=== PATIENT | female | born 1965 | race Caucasian/White ===

== ENCOUNTER 2017-11-10 18:30 | Inpatient (IN) | payer MEDICARE, MEDICAID, SELFPAY ==
[2017-11-10 18:34] VITALS: BP 124/64; PULSE 77; RESP 18; TEMP 36.3; O2SAT 99; BMI 38.0
[2017-11-10 20:33] VITALS: BP 106/61; PULSE 80; RESP 16; O2SAT 97
[2017-11-10 20:56] LABS: Bedside Glucose 306 mg/dL (70-110)
[2017-11-10 21:51] LABS: Absolute Lymphocyte Count 2.23 X10^3/ul (0.83-4.51); Absolute Neutrophil Count 7.3 X10^3/uL (2.0-7.7); Basophil# 0.06 X10^3/uL; Basophil% 0.6 % (0-1); Eosinophil# 0.15 X10^3/uL; Eosinophils% 1.4 % (0-5); Hemoglobin 12.8 g/dl (12.0-15.0); Lymphocyte # 2.23 X10^3/ul (4.0); Lymphocyte % 21.4 % (19-41); Mean Corp Hgb Conc 34.6 g/gl (32-36); Mean Platelet Vol. 10.7 fl (6.2-12.0); Monocyte# 0.67 X10^3/uL; Monocyte% 6.4 % (0-10); Neutrophil # 7.28 X10^3/uL (2.7-7.7); Platelet Count 138 K/mm3 (150-450); RBC Distribution Width SD 40.8 fl (35.1-43.9); Red Blood Count 4.57 M/mm3 (4.2-5.4); White Blood Count 10.4 K/mm3 (4.4-11.0)
[2017-11-10] MEDS: HYDROmorphone 1 MG/ML Syringe 0.5 MG IV (22:00)
[2017-11-10] MEDS: 0.9% Normal Saline 1,000 ML 1000 ML IV (22:01)
[2017-11-10 22:02] LABS: POSITIVE COUNT NO; POSITIVE DIFFERENTIAL NO; POSITIVE MORPHOLOGY NO
[2017-11-10 22:03] VITALS: BP 127/59; PULSE 80; RESP 16; O2SAT 99
[2017-11-10 22:03] LABS: AST(SGOT) 34 U/L (15-37); Alanine Aminotransfer ALT/SGPT 38 U/L (12-78); Albumin, Serum 4.1 g/dL (3.4-5.0); Alkaline Phosphatase 133 U/L (45-117); Anion Gap 13 (5-15); BUN 37 mg/dL (7-18); BUN/Creat Ratio 19.7 RATIO (10-20); Bilirubin, Direct 0.32 mg/dL (0.00-0.30); Calcium,Total 9.5 mg/dL (8.5-10.1); Chloride 93 mmol/L (98-107); Creatinine, Serum 1.88 mg/dL (0.55-1.02); EST Glomerular Filtration Rate 30 mL/min (>60); Est Glom Filt Rate - Afr Amer 36 mL/min (>60); Estimated Creatinine Clearance 33.51 ml/min; Globulin 4.7 g/dL (2.2-4.2); Glucose 291 mg/dL (70-110); Lipase 104 U/L (73-393); Potassium 3.3 mmol/L (3.5-5.1); Protein, Total 8.8 g/dL (6.4-8.2); Sodium Level 130 mmol/L (136-145)
--- NOTE | 2017-11-10 22:34 | ED.DCSUM_ITS ---
- ER Visit Summary Date of Service: 11/10/17 Chief Complaint: Abdominal pain and vomiting History of Present Illness: The patient is a 52 F with a history of NOYOLA and gastroparesis. Patient reports having a flare of abdominal pain and nausea and vomiting over the past 3 or 4 days. She has not had fever. She has Phenergan at home that is no longer helping. She is also using a scopolamine patch. Physical Examination: Vital signs are unremarkable. Patient sitting upright in bed no acute distress. Head and neck examination is significant for dry mucous membranes. Scopolamine patch is in place behind the left ear. Heart is regular rate and rhythm. Lung sounds are clear. Abdomen is soft with mild diffuse tenderness palpation. There is no guarding or rebound. Hypoactive bowel sounds are noted. Test Results: CBC is significant for platelet count of 138,000. Chemistry studies reveal a sodium of 130, potassium 3.3, chloride 93. Glucose is 291, BUN 37, creatinine 1.88. This is elevated above her baseline. LFTs are significant for direct bili 0.32 and an alk phos of 133. Lipase is normal. Her ammonia is elevated at 131. I only have one prior ammonia level from approximately 9 months ago and at that time is in the 70s. Emergency Department Course and Treatment: Patient was given a small dose of Dilaudid, Phenergan, and IV fluids. A dose of lactulose is ordered. I will order potassium as well. At this time patient will be admitted for further hydration and monitoring of her symptoms. Treatment Plan: [] Disposition: Admit Impression: 1. Hyponatremia 2. Acute kidney injury 3. Elevated ammonia 4. Gastroparesis 5. History of NOYOLA This note was generated with [employer] dictation software. It may contain incorrect words, spelling, and punctuation that were not noted in review of the chart prior to signing ED Disposition - Plan for ED Patient: Chief Complaint: Abd Pain Referrals: Kaylee Franco MD [Primary Care Provider] -
[2017-11-10] MEDS: Lactulose 20 GM/30 ML UDC PO (22:47)
--- NOTE | 2017-11-10 23:35 | PCM.HP.STD ---
Problem List (1) NOYOLA (nonalcoholic steatohepatitis) Status: Acute (2) HLD (hyperlipidemia) Status: Chronic Qualifiers: (3) Obesity (BMI 30-39.9) Status: Chronic (4) MANI (obstructive sleep apnea) Status: Chronic (5) Hypothyroidism Status: Chronic Qualifiers: (6) IBS (irritable bowel syndrome) Status: Chronic Qualifiers: (7) Coronary artery disease Status: Chronic Qualifiers: (8) Asthma Status: Chronic (9) Diabetes mellitus type II Status: Chronic (10) Gastroparesis Status: Acute (11) Hyperammonemia Status: Acute History of Present Illness Date of Admission: 11/11/17 Chief Complaint: nausea and vomiting, abdominal pain The patient is a 52 year old female patient with a history of gastroparesis and NOYOLA. Over the past four days she has developed worsening abdominal pain with nausea and vomiting. She is unable to tolerate Reglan due to tardive dyskinesia. Ammonia level is 130 however, she states this is abnormally high for her. The patient has hyponatremia, hypokalemia. renal insifficiency as well by her laboratory studies today. She has not previously been on Xifaxan. She will be admitted for management of her abdominal pain and abnormal laboratory studies. Past Medical History Past Medical History (Chronic Problems): Chronic Problems HLD (hyperlipidemia) (Chronic) Obesity (BMI 30-39.9) (Chronic) MANI (obstructive sleep apnea) (Chronic) Hypothyroidism (Chronic) IBS (irritable bowel syndrome) (Chronic) Thrombocytopenia (Chronic) Coronary artery disease (Chronic) Asthma (Chronic) Diabetes mellitus type II (Chronic) Hypertension (Chronic) Allergies adhesive Allergy (Verified 10/04/17 16:16) BLISTERS ADHESIVE ON BAND-AIDS sumatriptan [From Imitrex] Adverse Reaction (Intermediate, Verified 10/04/17 16:16) PALPITATIONS sumatriptan succinate [From Imitrex] Adverse Reaction (Intermediate, Verified 10/04/17 16:16) PALPITATIONS prednisone Adverse Reaction (Mild, Verified 10/04/17 16:16) Vomiting amoxicillin trihydrate [From Augmentin] Adverse Reaction (Verified 10/04/17 16:16) Nausea barium iodide Adverse Reaction (Verified 10/04/17 16:16) Nausea/Vom/Diarrhea citalopram Adverse Reaction (Verified 10/04/17 16:16) Unknown glyburide [From Glucovance] Adverse Reaction (Verified 10/04/17 16:16) Unknown ibuprofen Adverse Reaction (Verified 10/04/17 16:16) Unknown metformin [From Glucovance] Adverse Reaction (Verified 10/04/17 16:16) Unknown metoclopramide [From Reglan] Adverse Reaction (Verified 10/04/17 16:16) constant motion of legs and arms it didn't work morphine Adverse Reaction (Verified 10/04/17 16:16) Unknown naproxen Adverse Reaction (Verified 10/04/17 16:16) Unknown oxaprozin [From Daypro] Adverse Reaction (Verified 10/04/17 16:16) Unknown potassium clavulanate [From Augmentin] Adverse Reaction (Verified 10/04/17 16:16) Nausea prednisolone Adverse Reaction (Verified 10/04/17 16:16) Unknown pregabalin [From Lyrica] Adverse Reaction (Verified 10/04/17 16:16) Other TOTAL LOSS OF NERVES prochlorperazine [From Compazine] Adverse Reaction (Verified 11/10/17 18:33) Other tramadol Adverse Reaction (Verified 10/04/17 16:16) Other RESTLESS venlafaxine [From Effexor] Adverse Reaction (Verified 10/04/17 16:16) Unknown Home Medications: Ambulatory Orders Medication Instructions Recorded BusPIRone [Buspar] 10 mg PO DAILY 07/02/15 Levothyroxine [Synthroid] 150 mcg PO DAILY 07/02/15 Montelukast Sodium [Singulair] 10 mg PO QHS 07/02/15 Pantoprazole Sodium [Protonix] 40 mg PO DAILY 07/02/15 ProMETHAzine [Phenergan] 25 mg PO Q4H PRN PRN 07/02/15 Clopidogrel Bisulfate [Plavix] 75 mg PO DAILY 07/10/15 Losartan Potassium [Cozaar] 25 mg PO QHS 07/10/15 Rosuvastatin Calcium [Crestor] 10 mg PO QHS 12/01/15 Albuterol IH (ProAir) [Proair Hfa] 2 puff INHALATION Q4H PRN PRN 01/18/17 DiphenhydrAMINE [Benadryl] 25 mg PO Q4H PRN PRN 01/18/17 Insulin Lispro [Humalog] See Protocol SC QHS 01/18/17 Insulin Glargine,Hum.rec.anlog 55 unit SQ BID 03/25/17 [Lantus] Insulin Lispro [Humalog] 35 unit SQ TIDCM 03/25/17 Spironolactone [Aldactone] 25 mg PO DAILY 04/19/17 Alprazolam [Xanax Xr] 1 mg PO DAILY 10/04/17 Cyclobenzaprine [Flexeril] 10 mg PO BID 10/04/17 Furosemide [Lasix] 40 mg PO DAILY 10/04/17 Lactulose 30 ml PO DAILY 10/04/17 Metolazone [Zaroxolyn] 2.5 mg PO DAILY 10/04/17 Oxycodone [Oxyir] 5 mg PO Q6H PRN PRN 10/04/17 Scopolamine 1 each TD X1 10/04/17 Surgical History: cholecystectomy, - - necrotizing fasciitis right calf with compartmental syndrome 12/2000, left shoulder surgery. Psychiatric History: Anxiety, Depression [employer] SALES History: No pertinent [employer] SAL[employer] history Smoking Status: Never smoker - *Family History Paternal History Items: No pertinent history Maternal History Items: No pertinent history Review of Systems Constitutional: Denies: Chills, Fever, Weight Change HEENT: Denies: Head Aches, Sinus Congestion, Sinus Drainage Cardiovascular: Denies: Chest Pain, Palpitations Respiratory: Denies: Cough, Shortness of breath at rest, Sputum production Gastrointestinal: Reports: Abdominal Pain, Dyspepsia, Nausea, Vomiting Genitourinary: Denies: Dysuria Musculoskeletal: Denies: Joint Pain, Joint Tenderness Skin: Denies: Rash, Wounds Neurological: Denies: Numbness, Tingling, Focal weakness Psychiatric: Denies: Anxiety, Depression, Homicidal Ideations, Suicidal Ideations Hematologic/ Lymphatic: Denies: Easy Bruising, Easy Bleeding VTE Information - Inpt Only VTE Present on Admission: No VTE Mechan Device Prophylaxis: None VTE Pharm Prophylaxis ordered?: Yes Patient Problems: Active and Suspected Problems NOYOLA (nonalcoholic steatohepatitis) (Acute) Hyperammonemia (Acute) - Physical Exam General: Alert, Oriented x3, Cooperative HEENT: Atraumatic, Normocephalic Neck: Supple Lungs: Clear to auscultation, Normal air movement Cardiovascular: Regular rate, Regular Rhythm, Normal S1, Normal S2, No murmurs Abdomen: Bowel Sounds Present, Soft, Obese, Tender Extremities: No edema, Capillary Refill Less than 3 Seconds Skin: No rashes, No breakdown Musculoskeletal: No Tenderness to Palpation of Joints or Extremities Neurological: Neuro grossly intact Psych/Mental Status: Normal Affect, Appropriate Vital Signs Temp Pulse Resp BP Pulse Ox 97.4 F L 80 16 127/59 H 99 11/10/17 18:34 11/10/17 22:03 11/10/17 22:03 11/10/17 22:03 11/10/17 22:03 Oxygen Delivery Method Room Air Weight: 236 lb Body Mass Index (BMI) 38.0 Finger Stick Blood Glucose 306 Laboratory Tests Past 24 Hrs 11/10/17 11/10/17 11/10/17 20:32 20:32 20:32 WBC 10.4 RBC 4.57 Hgb 12.8 Hct 37.0 MCV 81.0 MCH 28.0 MCHC 34.6 RDW 14.0 RDW Differential 40.8 Plt Count 138 L MPV 10.7 Immature Gran % (Auto) 0.200 Neut % (Auto) 70.0 Lymph % (Auto) 21.4 [place] % (Auto) 6.4 Eos % (Auto) 1.4 Baso % (Auto) 0.6 Absolute Neuts (auto) 7.3 Absolute Lymphs (auto) 2.23 Total Counted Not Reportable Sodium 130 L Potassium 3.3 L Chloride 93 L Carbon Dioxide 24.0 Anion Gap 13 BUN 37 H Creatinine 1.88 H Estim Creat Clear Calc 33.51 Est GFR (MDRD) Af Amer 36 L Est GFR (MDRD) Non-Af 30 L BUN/Creatinine Ratio 19.7 Glucose 291 H Calcium 9.5 Total Bilirubin 0.80 Direct Bilirubin 0.32 H AST 34 ALT 38 Alkaline Phosphatase 133 H Ammonia Total Protein 8.8 H Albumin 4.1 Globulin 4.7 H Lipase 104 Acetone Level NEGATIVE 11/10/17 21:40 WBC RBC Hgb Hct MCV MCH MCHC RDW RDW Differential Plt Count MPV Immature Gran % (Auto) Neut % (Auto) Lymph % (Auto) [place] % (Auto) Eos % (Auto) Baso % (Auto) Absolute Neuts (auto) Absolute Lymphs (auto) Total Counted Sodium Potassium Chloride Carbon Dioxide Anion Gap BUN Creatinine Estim Creat Clear Calc Est GFR (MDRD) Af Amer Est GFR (MDRD) Non-Af BUN/Creatinine Ratio Glucose Calcium Total Bilirubin Direct Bilirubin AST ALT Alkaline Phosphatase Ammonia 131.0 H Total Protein Albumin Globulin Lipase Acetone Level POC Glucose 11/10/17 20:46 POC Glucose 306 H Assessment/Plan Active and Suspected Problems NOYOLA (nonalcoholic steatohepatitis) (Acute) Hyperammonemia (Acute) Chronic Problems HLD (hyperlipidemia) (Chronic) Obesity (BMI 30-39.9) (Chronic) MANI (obstructive sleep apnea) (Chronic) Hypothyroidism (Chronic) IBS (irritable bowel syndrome) (Chronic) Thrombocytopenia (Chronic) Coronary artery disease (Chronic) Asthma (Chronic) Diabetes mellitus type II (Chronic) Gastroparesis (Chronic) Hypertension (Chronic) Plan - admit to medical surgical floor - start lactulose and Xifaxan for management of her hyperammonemia - CMP and ammonia level in the AM - continue Zofran and Compazine for nausea - IV fluids of normal saline with 20meq Kcl at 75cc/hr - continue routine home medications - LMWH for DVT prophylaxis Code Visit Inpatient E&M: 47816 Init Hosp L3
[2017-11-10] MEDS: 0.9% Normal Saline 1,000 ML 150 ML IV (23:42)
[2017-11-11] VITALS (9 sets, daily range): BP systolic 116–150; BP diastolic 53–82; PULSE 65–80; RESP 14–22; TEMP 35.6–37; O2SAT 95–100; BMI 38.9
[2017-11-11] MEDS: HYDROmorphone 1 MG/ML Syringe 0.5 MG IV (00:11)
[2017-11-11] MEDS: Ondansetron 4 MG/2 ML Vial IV (02:50)
[2017-11-11] MEDS: oxyCODONE 5 MG Tablet PO ×2 (02:52→08:53)
[2017-11-11] MEDS: Levothyroxine 150 MCG Tablet PO (06:29)
[2017-11-11 06:51] LABS: Bedside Glucose 273 mg/dL (70-110)
[2017-11-11 07:00] LABS: Absolute Lymphocyte Count 1.77 X10^3/ul (0.83-4.51); Absolute Neutrophil Count 3.1 X10^3/uL (2.0-7.7); Basophil# 0.02 X10^3/uL; Basophil% 0.4 % (0-1); Eosinophil# 0.15 X10^3/uL; Eosinophils% 2.8 % (0-5); Hematocrit 33.7 % (37-47); Hemoglobin 11.5 g/dl (12.0-15.0); Lymphocyte # 1.77 X10^3/ul (4.0); Mean Corp Hgb Conc 34.1 g/gl (32-36); Mean Corpuscular Hgb 27.9 pg (27.0-32.0); Mean Corpuscular Volume 81.8 fL (81-99); Mean Platelet Vol. 9.8 fl (6.2-12.0); Monocyte# 0.35 X10^3/uL; Monocyte% 6.5 % (0-10); Neutrophil # 3.07 X10^3/uL (2.7-7.7); Neutrophil % 57.3 % (47-70); Platelet Count 81 K/mm3 (150-450); RBC Distribution Width SD 41.9 fl (35.1-43.9); Red Blood Count 4.12 M/mm3 (4.2-5.4); White Blood Count 5.4 K/mm3 (4.4-11.0)
[2017-11-11 07:08] LABS: POSITIVE COUNT NO; POSITIVE DIFFERENTIAL NO; POSITIVE MORPHOLOGY NO
[2017-11-11 07:30] LABS: ALB/GLOB Ratio 0.8 RATIO (0.9-2.4); AST(SGOT) 28 U/L (15-37); Alanine Aminotransfer ALT/SGPT 31 U/L (12-78); Albumin, Serum 3.4 g/dL (3.4-5.0); Alkaline Phosphatase 103 U/L (45-117); Anion Gap 9 (5-15); BUN 26 mg/dL (7-18); BUN/Creat Ratio 19.7 RATIO (10-20); Calcium,Total 8.2 mg/dL (8.5-10.1); Chloride 100 mmol/L (98-107); Creatinine, Serum 1.32 mg/dL (0.55-1.02); EST Glomerular Filtration Rate 45 mL/min (>60); Est Glom Filt Rate - Afr Amer 55 mL/min (>60); Estimated Creatinine Clearance 47.73 ml/min; Glucose 268 mg/dL (70-110); Potassium 3.6 mmol/L (3.5-5.1); Protein, Total 7.4 g/dL (6.4-8.2); Sodium Level 135 mmol/L (136-145)
[2017-11-11] MEDS: Glucerna Shake 120 ML LIQUID PO (08:52)
[2017-11-11] MEDS: Pantoprazole Sodium 40 MG Tablet PO (08:52)
[2017-11-11] MEDS: ALPRAZolam 0.5 MG Tablet 1 MG PO (08:52)
[2017-11-11] MEDS: Furosemide 40 MG Tablet PO (08:53)
[2017-11-11] MEDS: Spironolactone 25 MG Tablet PO (08:53)
[2017-11-11] MEDS: Clopidogrel Bisulfate 75 MG Tablet PO (08:54)
[2017-11-11] MEDS: 0.9% NaCl Peripheral Flush Adult/Peds IV ×2 (08:54→16:12)
[2017-11-11] MEDS: Lactulose 20 GM/30 ML UDC PO ×2 (08:59→22:28)
[2017-11-11] MEDS: rifAXIMin 550 MG Tablet PO ×2 (09:00→22:28)
--- NOTE | 2017-11-11 13:34 | CASEMGMT ---
RN CM Assessment. Attempted to see pt x 3. she is very sleepy, awakens for short time only. Attempted to call number listed for , not a working number. Will attempt again tomorrow. Walter GONZALEZN RN ACM
[2017-11-11 14:31] LABS: Bedside Glucose 284 mg/dL (70-110)
[2017-11-11 16:26] LABS: Bedside Glucose 171 mg/dL (70-110)
--- NOTE | 2017-11-11 16:47 | PCM.PN.HOSP ---
Patient Problems: Active and Suspected Problems NOYOLA (nonalcoholic steatohepatitis) (Acute) Hyperammonemia (Acute) Subjective: Patient has multiple somatic complaints including generalized abdominal pain with cramps; predominantly in lower abdominal quadrant, feeling of nausea, decreased appetite, burping and nonspecific dyspeptic symptoms. She has seen [facility] adult literacy teacher Dr. Gtz in the past. She had tried metoclopramide in the past but due to tardive dyskinesia and other complication has been discontinued. Vitals/I&O's: Vital Signs Temp Pulse Resp BP Pulse Ox 96.1 F L 74 16 137/82 H 100 11/11/17 14:20 11/11/17 14:20 11/11/17 14:20 11/11/17 14:20 11/11/17 14:20 Oxygen Flow Rate 2 Oxygen Delivery Method Nasal Cannula Weight: 240 lb 15.444 oz Body Mass Index (BMI) 38.9 Intake and Output for Last 24 Hours 11/09/17 11/10/17 11/11/17 23:59 23:59 23:59 Intake Total 1991 Output Total 1750 / 1750 Balance 242 / 242 General: Alert, Oriented x3, Cooperative HEENT: Atraumatic, PERRLA, EOMI, Normocephalic Neck: Supple, No JVD, Negative Carotid Bruits Lungs: No rhonchi, No wheeze, No rales, Diminished Cardiovascular: Regular rate, Regular Rhythm, Normal S1, Normal S2, No murmurs Abdomen: Bowel Sounds Present, Soft, Non Tender, Hypoactive Bowel Sounds, Distended Extremities: Capillary Refill Less than 3 Seconds, Edema Skin: No rashes, No breakdown Musculoskeletal: No Tenderness to Palpation of Joints or Extremities, Arthritic Changes Neurological: Cranial nerves II-XII grossly intact, Neuro grossly intact Psych/Mental Status: Normal Affect, Appropriate Laboratory Results 11/11/17 06:36: POC Glucose 273 H 11/11/17 06:40: WBC 5.4, RBC 4.12 L, Hgb 11.5 L, Hct 33.7 L, MCV 81.8, MCH 27.9, MCHC 34.1, RDW 14.0, RDW Differential 41.9, Plt Count 81 L, MPV 9.8, Immature Gran % (Auto) 0.000, Neut % (Auto) 57.3, Lymph % (Auto) 33.0, [place] % (Auto) 6.5, Eos % (Auto) 2.8, Baso % (Auto) 0.4, Absolute Neuts (auto) 3.1, Absolute Lymphs (auto) 1.77, Total Counted Not Reportable 11/11/17 06:40: Sodium 135 L, Potassium 3.6, Chloride 100, Carbon Dioxide 26.0, Anion Gap 9, BUN 26 H, Creatinine 1.32 H, Estim Creat Clear Calc 47.73, Est GFR (MDRD) Af Amer 55 L, Est GFR (MDRD) Non-Af 45 L, BUN/Creatinine Ratio 19.7, Glucose 268 H, Calcium 8.2 L, Total Bilirubin 1.00, AST 28, ALT 31, Alkaline Phosphatase 103, Total Protein 7.4, Albumin 3.4, Globulin 4.0, Albumin/Globulin Ratio 0.8 L 11/11/17 06:40: Ammonia 51.0 H 11/11/17 11:49: POC Glucose 284 H 11/11/17 16:09: POC Glucose 171 H Current Medications Albuterol Sulfate (Ventolin Aerosols) 2.5 mg INHALATION Q4H PRN PRN PRN Reason: SOB &/OR WHEEZING Alprazolam (Xanax) 1 mg PO DAILY [facility] Last Admin: 11/11/17 08:52 Dose: 1 mg Atorvastatin Calcium (Lipitor) 20 mg PO QHS [facility] Buspirone HCl (Buspar) 10 mg PO DAILY [facility] Last Admin: 11/11/17 08:55 Dose: 10 mg Clopidogrel Bisulfate (Plavix) 75 mg PO DAILY [facility] Last Admin: 11/11/17 08:54 Dose: 75 mg Cyclobenzaprine HCl (Flexeril) 10 mg PO BID [facility] Last Admin: 11/11/17 08:53 Dose: 10 mg Diphenhydramine HCl (Benadryl) 25 mg PO Q4H PRN PRN PRN Reason: Swelling Furosemide (Lasix) 40 mg PO DAILY [facility] Last Admin: 11/11/17 08:53 Dose: 40 mg Potassium Chloride/Sodium Chloride () 1,000 mls @ 75 mls/hr IV .[id number] [facility] Last Admin: 11/11/17 16:12 Dose: 75 mls/hr Insulin Aspart (Novolog Flexpen ([facility])) 35 units SC TIDCM [facility] Last Admin: 11/11/17 11:52 Dose: 35 u Insulin Aspart (Novolog Flexpen ([facility])) 0 units SC QHS [facility] PRN Reason: Protocol Insulin Detemir (Levemir ([facility])) 55 units SC BID [facility] Last Admin: 11/11/17 08:56 Dose: 55 u Lactulose (Chronulac, Cephulac) 20 gm PO BID [facility] Last Admin: 11/11/17 08:59 Dose: 20 gm Levothyroxine Sodium (Synthroid) 150 mcg PO DAILY@0600 [facility] Last Admin: 11/11/17 06:29 Dose: 150 mcg Losartan Potassium (Cozaar) 25 mg PO QHS [facility] Magnesium Hydroxide (Milk Of Magnesia) 30 ml PO DAILY PRN PRN PRN Reason: Constipation Montelukast Sodium (Singulair) 10 mg PO QHS [facility] Ondansetron HCl (Zofran) 4 mg IV Q6H PRN PRN PRN Reason: NAUSEA Last Admin: 11/11/17 02:50 Dose: 4 mg Oxycodone HCl (Oxyir) 5 mg PO Q6H PRN PRN PRN Reason: PAIN Last Admin: 11/11/17 08:53 Dose: 5 mg Pantoprazole Sodium (Protonix) 40 mg PO DAILY [facility] Last Admin: 11/11/17 08:52 Dose: 40 mg Promethazine HCl (Phenergan (Ll)) 12.5 mg IV Q4H PRN PRN PRN Reason: NAUSEA/VOMITING Last Admin: 11/11/17 16:12 Dose: 12.5 mg Rifaximin (Xifaxan) 550 mg PO BID [facility] Last Admin: 11/11/17 09:00 Dose: 550 mg Scopolamine HBr (Transderm-Scop) 1 patch TD Q72H PRN Sodium Chloride () 5 - 30 ml IV UD PRN PRN Reason: SALINE FLUSH Last Admin: 11/11/17 16:12 Dose: 20 ml Spironolactone (Aldactone) 25 mg PO DAILY [facility] Last Admin: 11/11/17 08:53 Dose: 25 mg Assessment/Plan Active and Suspected Problems NOYOLA (nonalcoholic steatohepatitis) (Acute) Hyperammonemia (Acute) The patient is a 52 year old female patient with a history of gastroparesis and NOYOLA. Over the past four days she has developed worsening abdominal pain with nausea and vomiting. She is unable to tolerate Reglan due to tardive dyskinesia. Ammonia level was 130 however, she states this is abnormally high for her. The patient has hyponatremia, hypokalemia. renal insifficiency. She has not previously been on Xifaxan. Was further admitted for acute exacerbation of gastroparesis with abdominal pain and nausea and vomiting. 1. Acute on chronic abdominal pain and vomiting most rarely due to irritable bowel syndrome complicated with diabetes mellitus type 2, gastroparesis: Patient is being admitted to the regular floor. She is on scopolamine patch. Currently on IV fluid normal saline, Phenergan for symptomatic management. Started on erythromycin 250 mg before meals and at bedtime for gastroparesis need to follow-up with adult literacy teacher. 2. Noyola related cirrhosis with hyperammonemia: Currently, the patient is not confused. Liver biopsy report reviewed. Patient had CT-guided liver biopsy on March 2017 which is reported as the liver parenchyma tissue with extensive microvascular steatosis and cirrhosis. It shows distortion of normal lobular architecture and multiple nodules divided by fibrous septae stable cirrhosis. Continue lactulose and Xifaxan. 3. Diabetes mellitus type 2 complicated with gastroparesis, peripheral neuropathy and morbid obesity: On Accu-Chek before meals and at bedtime. On long-acting insulin, Levemir and NovoLog insulin. Other comorbidities include hypertension, dyslipidemia, hypothyroidism, irritable bowel syndrome, asthma; chronic stable asthma stable. Home medication reconciliation done. Multiple comorbidities complicates the care. PT and OT ordered. LMWH lateral SCDs for DVT prophylaxis Code Visit Inpatient E&M: 45009 Subs Hosp L2
[2017-11-11 22:21] LABS: Bedside Glucose 312 mg/dL (70-110)
[2017-11-11] MEDS: Montelukast 10 MG Tablet PO (22:28)
[2017-11-11] MEDS: Losartan Potassium 25 MG Tablet PO (22:28)
[2017-11-11] MEDS: Atorvastatin Calcium 20 MG Tablet PO (22:28)
[2017-11-12] MEDS: oxyCODONE 5 MG Tablet PO (00:07)
[2017-11-12 02:20] VITALS: BP 119/56; PULSE 69; RESP 16; TEMP 36.6; O2SAT 98
--- NOTE | 2017-11-12 05:55 | EKG12_ITS ---
Test Reason : AM EKG Blood Pressure : / mmHG Vent. Rate : 078 BPM Atrial Rate : 078 BPM P-R Int : 202 ms QRS Dur : 118 ms QT Int : 416 ms P-R-T Axes : 028 -26 035 degrees QTc Int : 474 ms Normal sinus rhythm Incomplete left bundle branch block Borderline ECG When compared with ECG of 17-JUL-2017 16:54, No significant change was found Confirmed by XOCHITL SALEH ([id number]), science editor XIAO GROSSMAN ([id number] on 11/20/2017 1:40:56 PM Referred By: DR PETERSEN Confirmed By:XOCHITL SALEH
[2017-11-12] MEDS: Levothyroxine 150 MCG Tablet PO (06:20)
[2017-11-12 07:06] LABS: Bedside Glucose 352 mg/dL (70-110)
[2017-11-12 08:45] VITALS: BP 120/58; PULSE 77; RESP 16; TEMP 37.1; O2SAT 99
--- NOTE | 2017-11-12 09:27 | DCINST_ITS ---
- Discharge Diagnoses Current Active Problems: Current Active and Chronic Problems NOYOLA (nonalcoholic steatohepatitis) (Acute) Hyperammonemia (Acute) You will use the following diet at home:: Calorie/Carbohydrate Controlled ( specify 1200, 1400, etc) - 1800 [place] diet Discharge Activity: May not drive while taking narcotic pain medications. Additional Instructions: Follow-up [facility] bariatric surgery or [facility] GI service for morbid obesity and, IBS, Cirrhosis with gastroparesis Allergies/Adverse Reactions: Allergies adhesive Allergy (Verified 10/04/17 16:16) BLISTERS ADHESIVE ON BAND-AIDS sumatriptan [From Imitrex] Adverse Reaction (Intermediate, Verified 10/04/17 16: 16) PALPITATIONS sumatriptan succinate [From Imitrex] Adverse Reaction (Intermediate, Verified 16:16) PALPITATIONS prednisone Adverse Reaction (Mild, Verified 10/04/17 16:16) Vomiting amoxicillin trihydrate [From Augmentin] Adverse Reaction (Verified 10/04/17 16: 16) Nausea barium iodide Adverse Reaction (Verified 10/04/17 16:16) Nausea/Vom/Diarrhea citalopram Adverse Reaction (Verified 10/04/17 16:16) Unknown glyburide [From Glucovance] Adverse Reaction (Verified 10/04/17 16:16) Unknown ibuprofen Adverse Reaction (Verified 10/04/17 16:16) Unknown metformin [From Glucovance] Adverse Reaction (Verified 10/04/17 16:16) Unknown metoclopramide [From Reglan] Adverse Reaction (Verified 10/04/17 16:16) constant motion of legs and arms it didn't work morphine Adverse Reaction (Verified 10/04/17 16:16) Unknown naproxen Adverse Reaction (Verified 10/04/17 16:16) Unknown oxaprozin [From Daypro] Adverse Reaction (Verified 10/04/17 16:16) Unknown potassium clavulanate [From Augmentin] Adverse Reaction (Verified 10/04/17 16:16 ) Nausea prednisolone Adverse Reaction (Verified 10/04/17 16:16) Unknown pregabalin [From Lyrica] Adverse Reaction (Verified 10/04/17 16:16) Other TOTAL LOSS OF NERVES prochlorperazine [From Compazine] Adverse Reaction (Verified 11/10/17 18:33) Other tramadol Adverse Reaction (Verified 10/04/17 16:16) Other RESTLESS venlafaxine [From Effexor] Adverse Reaction (Verified 10/04/17 16:16) Unknown Medications to take at Discharge BusPIRone [Buspar] 10 mg PO DAILY 07/02/15 Levothyroxine [Synthroid] 150 mcg PO DAILY 07/02/15 Montelukast Sodium [Singulair] 10 mg PO QHS 07/02/15 Pantoprazole Sodium [Protonix] 40 mg PO DAILY 07/02/15 ProMETHAzine [Phenergan] 25 mg PO Q4H PRN PRN 07/02/15 Clopidogrel Bisulfate [Plavix] 75 mg PO DAILY 07/10/15 Losartan Potassium [Cozaar] 25 mg PO QHS 07/10/15 Rosuvastatin Calcium [Crestor] 10 mg PO QHS 12/01/15 Albuterol IH (ProAir) [Proair Hfa] 2 puff INHALATION Q4H PRN PRN 01/18/17 DiphenhydrAMINE [Benadryl] 25 mg PO Q4H PRN PRN 01/18/17 Insulin Lispro [Humalog] See Protocol SC QHS 01/18/17 Insulin Glargine,Hum.rec.anlog [Lantus] 55 unit SQ BID 03/25/17 Insulin Lispro [Humalog] 35 unit SQ TIDCM 03/25/17 Spironolactone [Aldactone] 25 mg PO DAILY 04/19/17 Alprazolam [Xanax Xr] 1 mg PO DAILY 10/04/17 Cyclobenzaprine [Flexeril] 10 mg PO BID 10/04/17 Furosemide [Lasix] 40 mg PO DAILY 10/04/17 Metolazone [Zaroxolyn] 2.5 mg PO DAILY 10/04/17 Oxycodone [Oxyir] 5 mg PO Q6H PRN PRN 10/04/17 Scopolamine 1 each TD Q72H PRN 10/04/17 Erythromycin Base 250 mg PO TID #90 tab 11/12/17 Lactulose 15 ml PO BID #0 11/12/17 The following prescriptions were given: Erythromycin Base 250 mg PO TID #90 tab Primary Care Physician: Kaylee Franco MD [Primary Care Provider] - Please follow up with your Primary Care Physician in: in 2 weeks
--- NOTE | 2017-11-12 09:27 | PCM.DC.SUM ---
Discharge Date and Diagnosis Date of Admission: 11/11/17 Date of Discharge: 11/12/17 - Primary Discharge Diagnosis Active and Suspected Problems 1. Acute on chronic abdominal pain and vomiting most rarely due to irritable bowel syndrome complicated with diabetes mellitus type 2, gastroparesis: 2. Noyola related cirrhosis with hyperammonemia: Currently, the patient is not confused. No acute encephalopathy 3. Acute kidney injury most rarely due to nausea vomiting, prerenal etiology; present on admission: 4. Diabetes mellitus type 2 complicated with gastroparesis, peripheral neuropathy and morbid obesity: - Secondary Discharge Diagnosis Chronic Problems HLD (hyperlipidemia) (Chronic) Obesity (BMI 30-39.9) (Chronic) MANI (obstructive sleep apnea) (Chronic) Hypothyroidism (Chronic) IBS (irritable bowel syndrome) (Chronic) Thrombocytopenia (Chronic) Coronary artery disease (Chronic) Asthma (Chronic) Diabetes mellitus type II (Chronic) Hypertension (Chronic) Hospital Course and Treatment Operations: None Summary of Care Provided: [] The patient is a 52 year old female patient with a history of gastroparesis and NOYOLA. Over the past four days she has developed worsening abdominal pain with nausea and vomiting. She is unable to tolerate Reglan due to tardive dyskinesia. Ammonia level was 130 however, she states this is abnormally high for her. The patient has hyponatremia, hypokalemia. renal insifficiency. She has not previously been on Xifaxan. Was further admitted for acute exacerbation of gastroparesis with abdominal pain and nausea and vomiting. Seen and examined General: Alert, Oriented x3, Cooperative HEENT: Atraumatic, PERRLA, EOMI, Normocephalic Neck: Supple, No JVD, Negative Carotid Bruits Lungs: No rhonchi, No wheeze, No rales, Diminished Cardiovascular: Regular rate, Regular Rhythm, Normal S1, Normal S2, No murmurs Abdomen: Bowel Sounds Present, Soft, Non Tender, Hypoactive Bowel Sounds, Distended Extremities: Capillary Refill Less than 3 Seconds, Edema Skin: No rashes, No breakdown Musculoskeletal: No Tenderness to Palpation of Joints or Extremities, Arthritic Changes Neurological: Cranial nerves II-XII grossly intact, Neuro grossly intact Psych/Mental Status: Normal Affect, Appropriate 1. Acute on chronic abdominal pain and vomiting most rarely due to irritable bowel syndrome complicated with diabetes mellitus type 2, gastroparesis: Patient is being admitted to the regular floor. She is on scopolamine patch. Currently on IV fluid normal saline, Phenergan for symptomatic management. Started on erythromycin 250 mg before meals and at bedtime for gastroparesis need to follow-up with manager [facility]. Patient dyspeptic symptoms including abdominal pain and cramps was controlled with erythromycin. 2. Noyola related cirrhosis with hyperammonemia: Currently, the patient is not confused. Liver biopsy report reviewed. Patient had CT-guided liver biopsy on March 2017 which is reported as the liver parenchyma tissue with extensive microvascular steatosis and cirrhosis. It shows distortion of normal lobular architecture and multiple nodules divided by fibrous septae stable cirrhosis. Continue lactulose and Xifaxan. 3. Acute kidney injury most rarely due to nausea vomiting, prerenal etiology; present on admission: Patient was treated with IV fluids. Creatinine improved from 1.80-1.32. Resolved. 4. Diabetes mellitus type 2 complicated with gastroparesis, peripheral neuropathy and morbid obesity: On Accu-Chek before meals and at bedtime. On long-acting insulin, Levemir and NovoLog insulin. Other comorbidities include hypertension, dyslipidemia, hypothyroidism, irritable bowel syndrome, asthma; chronic stable asthma stable. Home medication reconciliation done. Multiple comorbidities complicates the care. PT and OT ordered. LMWH lateral SCDs for DVT prophylaxis Discharge medication reconciliation done. Patient was instructed to follow with a manager sql in [facility] are currently in bariatric surgery. Patient has Noyola related cirrhosis. Discharge follow-up instructions completed. Discharge Activity: May not drive while taking narcotic pain medications. Home Medications: Medications to take at Discharge BusPIRone [Buspar] 10 mg PO DAILY 07/02/15 Levothyroxine [Synthroid] 150 mcg PO DAILY 07/02/15 Montelukast Sodium [Singulair] 10 mg PO QHS 07/02/15 Pantoprazole Sodium [Protonix] 40 mg PO DAILY 07/02/15 ProMETHAzine [Phenergan] 25 mg PO Q4H PRN PRN 07/02/15 Clopidogrel Bisulfate [Plavix] 75 mg PO DAILY 07/10/15 Losartan Potassium [Cozaar] 25 mg PO QHS 07/10/15 Rosuvastatin Calcium [Crestor] 10 mg PO QHS 12/01/15 Albuterol IH (ProAir) [Proair Hfa] 2 puff INHALATION Q4H PRN PRN 01/18/17 DiphenhydrAMINE [Benadryl] 25 mg PO Q4H PRN PRN 01/18/17 Insulin Lispro [Humalog] See Protocol SC QHS 01/18/17 Insulin Glargine,Hum.rec.anlog [Lantus] 55 unit SQ BID 03/25/17 Insulin Lispro [Humalog] 35 unit SQ TIDCM 03/25/17 Spironolactone [Aldactone] 25 mg PO DAILY 04/19/17 Alprazolam [Xanax Xr] 1 mg PO DAILY 10/04/17 Cyclobenzaprine [Flexeril] 10 mg PO BID 10/04/17 Furosemide [Lasix] 40 mg PO DAILY 10/04/17 Metolazone [Zaroxolyn] 2.5 mg PO DAILY 10/04/17 Oxycodone [Oxyir] 5 mg PO Q6H PRN PRN 10/04/17 Scopolamine 1 each TD Q72H PRN 10/04/17 Erythromycin Base 250 mg PO TID #90 tab 11/12/17 Lactulose 15 ml PO BID #0 11/12/17 Following Prescrptions Were Given to Patient: Erythromycin Base 250 mg PO TID #90 tab Primary Care Physician: Kaylee Franco MD [Primary Care Provider] - Please follow up with your Primary Care Physician in: in 2 weeks Meaningful Use Info Meaningful Use Diagnoses (Choose all that apply): None applicable Code Visit Inpatient E&M: 75144 Disch Hosp
[2017-11-12] MEDS: Pantoprazole Sodium 40 MG Tablet PO (11:10)
[2017-11-12] MEDS: Spironolactone 25 MG Tablet PO (11:10)
[2017-11-12] MEDS: Furosemide 40 MG Tablet PO (11:11)
[2017-11-12] MEDS: Lactulose 20 GM/30 ML UDC PO (11:11)
[2017-11-12] MEDS: Clopidogrel Bisulfate 75 MG Tablet PO (11:12)
[2017-11-12] MEDS: rifAXIMin 550 MG Tablet PO (11:12)
[2017-11-12 12:11] LABS: Bedside Glucose 397 mg/dL (70-110)
== END 2017-11-12 12:27 | disposition home or self-care (01) | DRG 74 ==
LOC: ED 21:09 → MS2 11-11 00:52
PROVIDERS: Admitting Provider Family Medicine; Emergency Provider Emergency Medicine; Family Provider Internal Medicine; PCP Internal Medicine; Visit Provider Internal Medicine
DX: E11.43 Type 2 diabetes mellitus with diabetic autonomic (poly)neuropathy (principal); N17.9 Acute kidney failure, unspecified; D69.6 Thrombocytopenia, unspecified; E66.01 Morbid (severe) obesity due to excess calories; E87.1 Hypo-osmolality and hyponatremia; K58.9 Irritable bowel syndrome, unspecified; E11.42 Type 2 diabetes mellitus with diabetic polyneuropathy; K31.84 Gastroparesis; K74.60 Unspecified cirrhosis of liver; K75.81 Nonalcoholic steatohepatitis (NASH); E87.6 Hypokalemia; E03.9 Hypothyroidism, unspecified; E78.5 Hyperlipidemia, unspecified; G47.33 Obstructive sleep apnea (adult) (pediatric); I25.10 Atherosclerotic heart disease of native coronary artery without angina pectoris; J45.909 Unspecified asthma, uncomplicated; Z79.899 Other long term (current) drug therapy; Z68.38 Body mass index [BMI] 38.0-38.9, adult; Z79.4 Long term (current) use of insulin; I10 Essential (primary) hypertension
CPT/HCPCS: 36415; 80048; 80053; 80076; 82009; 82140; 82962; 83690; 85025; 93005; 97802; 99283; J7030; A4216; J2405

== ENCOUNTER → 2017-12-23 20:09 | Outpatient (CLI) | payer MEDICARE, MEDICAID, SELFPAY | PROVIDERS: Family Provider Internal Medicine; PCP Internal Medicine | DX: G47.33 Obstructive sleep apnea (adult) (pediatric) (principal); Z99.89 Dependence on other enabling machines and devices | CPT/HCPCS: 95811 ==

== ENCOUNTER 2018-07-03 12:00 | Emergency (ER) | payer OTHER, MEDICARE, SELFPAY ==
[2018-07-03 12:01] VITALS: BP 133/98; PULSE 78; RESP 11; TEMP 36.8; O2SAT 96; BMI 40.6
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
[2018-07-03 12:20] VITALS: O2SAT 98
[2018-07-03] MEDS: proMETHazine 25 MG Tablet PO (12:25)
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
== END 2018-07-03 15:06 | disposition home or self-care (01) ==
PROVIDERS: Emergency Provider Emergency Medicine; Family Provider Internal Medicine; PCP Internal Medicine
DX: S20.219A Contusion of unspecified front wall of thorax, initial encounter (principal); S39.012A Strain of muscle, fascia and tendon of lower back, initial encounter; V89.2XXA Person injured in unspecified motor-vehicle accident, traffic, initial encounter; Y93.9 Activity, unspecified; Y92.9 Unspecified place or not applicable; F41.9 Anxiety disorder, unspecified; Z79.02 Long term (current) use of antithrombotics/antiplatelets; Z79.899 Other long term (current) drug therapy
CPT/HCPCS: 71046; 72100; 93005; 99281

== ENCOUNTER → 2018-08-05 07:31 | Outpatient (CLI) | payer MEDICARE, SELFPAY ==
--- NOTE | 2018-08-05 07:35 | CT_ITS ---
STUDY: CT ENTEROGRAPHY WITH CONTRAST REASON FOR EXAM: Female, 53 years old. Abdominal distention. History cardiac stents and angioplasty. Cholecystectomy. Celiac disease. Gastroparesis. RADIATION DOSAGE (If Supplied By Facility): CTDIvol = ( 26.53 ) mGy, DLP = ( 3099.98 ) mGycm TECHNIQUE: Transaxial images were obtained from the dome of the diaphragm to the symphysis pubis with oral contrast. 450ml of Volumen was administered orally at 60 minutes and 40 minutes and 225ml of Volumen was administered 20 minutes and 10 minutes prior to scanning, to a total of 1,350ml. 100 ml of Isovue-300 was administered intravenously. Sagittal and coronal images were reconstructed. TECHNICAL QUALITY: Image Quality: Satisfactory Small Bowel Distension: Adequate. Individualized dose optimization techniques were used for this CT. COMPARISON: None. FINDINGS: Bowel: Bowel wall thickening: Absent. Skip lesions: None. Vascularity: Normal. Enhancement: Normal. Fistula: None. Abscess: None. Other Findings: Arterial and portal venous phases noted. Visualized lower lung reid show minimal groundglass and increased interstitial markings suggesting minimal subsegmental atelectasis and/or scarring without pleural effusion or consolidating pneumonia identified. No calcified pleural plaque identified. The visualized portions of the heart appear mildly enlarged without pericardial effusion seen. Visualized distal esophagus shows no focal enhancing lesion. Liver appears enlarged, 26.6 cm sagittal Normal appearing extrahepatic biliary system status post cholecystectomy. Enlarged spleen, 16.7 sagittal. Normal pancreas. With portal venous phase, IV contrast normally fills nondilated portal vein. Upper abdomen midline ventral adipose tissue hernia seen, approximately 1.7 cm transverse at the neck and measuring approximately 2.3 x 6.7 cm without bowel herniation associated, appears unchanged. Second umbilicus old/supraumbilical adipose tissue containing hernia is seen, measures approximately 1.9 cm AP by 2.9 cm transverse, appears relatively unchanged. Normal adrenals. Normal right kidney. Normal left kidney. No hydronephrosis identified. Normal appearing visualized stomach with moderate distention and filled with food stuff, fluid and air. Normal colon. The appendix is again not visualized and no inferior pericecal efface the fat plane, abnormal fluid collection or thickened appendix is seen. Inferior to the liver, right paracolic gutter again shows diffuse soft tissue attenuating stranding which appears slightly decreased suggestive of minimal scarring. Normal abdominal aorta without dissection/transection or aneurysm noted but with moderate distal peripheral calcification again noted. Normal interior vena cava. Normal retroperitoneum. Normal moderately filled urinary bladder without focal enhancing lesion or intraluminal high attenuation calculus is seen. Uterus appears moderately enlarged and slightly lobulated in contour but relatively unchanged. Right adnexa shows rounded soft tissue tearing area likely representing the right ovary which shows a posterior paracentral rounded low-attenuation follicular cyst approximate 1 cm diameter with central Hounsfield units -5.6. Left ovary is not well visualized and no malignant Left adnexal mass is seen. Minimal haziness is noted in the presacral space, unchanged suggest mild scarring. No ventral/inguinal bowel herniation identified. Normal abdominal wall without subcutaneous or muscle focal enhancing lesion identified. Nonacute osseous structures. Severe degenerative lower thoracic spine noted. CT/Abdomen/Pelvis WITH Contrast IMPRESSION: Nonacute CT enterography. No CT finding of urinary or small bowel obstruction identified. Hepatosplenomegaly. 2 ventral adipose tissue containing hernias, one in the upper abdomen midline and one at the umbilical/supraumbilical level, both appear relatively unchanged without any bowel herniation associated. Again appendix is not visualized. Clinical correlation recommended. Electronically Signed: Aman Mendoza, at 11:25 EDT Tel , Service support ,
== END ==
PROVIDERS: Family Provider Internal Medicine; PCP Internal Medicine
DX: G89.29 Other chronic pain (principal); R14.0 Abdominal distension (gaseous); K75.81 Nonalcoholic steatohepatitis (NASH); K74.60 Unspecified cirrhosis of liver
CPT/HCPCS: 74177; Q9967; A4216

== ENCOUNTER 2018-08-05 08:49 | Observation (INO) | payer MEDICARE, SELFPAY ==
[2018-08-05 08:51] VITALS: BP 149/81; PULSE 71; RESP 20; TEMP 36.4; O2SAT 99; BMI 41.5
--- NOTE | 2018-08-05 09:10 | RAD_ITS ---
STUDY: X-RAY CHEST REASON FOR EXAM: Female, 53 years old. Fever and nausea TECHNIQUE: Single AP portable view of the chest. COMPARISON: July 03, 2018 FINDINGS: There appears mild linear hypoventilatory change at the right lung base, consider atelectasis versus scarring. This was present previously. There persists mild elevation of the right hemidiaphragm also present previously There is no demonstrated pleural abnormality. Heart size appears mildly enlarged, stable. Normal mediastinum and junaid. Normal visualized pulmonary arteries. Normal visualized aortic arch and descending thoracic aorta. Normal visualized thoracic spine. Left shoulder arthroplasty present unchanged. There is no demonstrated abnormality of the visualized soft tissue structures of the upper abdomen. RAD/Chest 1 View (Portable) IMPRESSION: Minimal atelectasis versus scar at the right lung base. No evidence of focal lung infiltrate. Electronically Signed: Shannon Lott MD at 9:43 EDT , Service support ,
--- NOTE | 2018-08-05 09:13 | ED.DCSUM_ITS ---
- ER Visit Summary Date of Service: 08/05/18 Chief Complaint: Nausea, vomiting and diarrhea History of Present Illness: The patient is a 53 F complaining of one-week history of nausea, vomiting diarrhea. Fever of 100 101. No cough. Patient has a history of insulin-dependent diabetes, anemia, CAD with 2 cardiac stents and nonalcoholic liver cirrhosis. She denies any dysuria. She denies any melena or hematemesis. Physical Examination: Middle-aged female. Vital signs are stable. Afebrile. Pulse is 9 9% room air no signs of hypoxia. No distress. HEENT exam mildly dry mucous members. Otherwise unremarkable. Neck nontender. No meningismus. No lymphadenopathy. Lungs clear to auscultation bilaterally. Heart regular rhythm no murmur rate about 70. Abdomen soft. Obese. Mildly tender in the right upper quadrant which is chronic the patient has nonalcoholic liver cirrhosis. There are no peritoneal signs. No hernias or masses. No signs of obstruction. Right lower quadrant unremarkable. She has bowel sounds. Moving all 4 extremities. No focal motor deficits. No edema. Back nontender. Neurologically she is awake and alert. Test Results: CBC White count 6. Hemoglobin 11.9 which is her baseline. Letter lites unremarkable. Gap is 7. Creatinine 1.3 which is also her baseline. Liver enzymes unremarkable alk phos of 119. Lipase normal. Emergency Department Course and Treatment: Patient treated with IV fluids, Zofran as she requested something for pain. Treatment Plan: Patient received 2 doses of Zofran. Also 2 doses of Phenergan. And still has nausea and vomiting. She went in the bathroom to give us a urine sample and threw up all over herself. We could not use a urine sample because it was contaminated. Multiple repeat exams patient's abdomen is benign. She will be admitted to the hospitalist. Disposition: Admission Impression: Acute nausea, vomiting and diarrhea Dehydration History of insulin-dependent diabetes History of nonalcoholic cirrhosis This note was generated with [employer] dictation software. It may contain incorrect words, spelling, and punctuation that were not noted in review of the chart prior to signing ED Disposition - Plan for ED Patient: Chief Complaint: Nausea/Vomiting Referrals: Kaylee Franco MD [Primary Care Provider] -
[2018-08-05 10:02] LABS: Absolute Lymphocyte Count 1.34 X10^3/ul (0.83-4.51); Absolute Neutrophil Count 4.1 X10^3/uL (2.0-7.7); Basophil# 0.02 X10^3/uL; Basophil% 0.3 % (0-1); Eosinophil# 0.22 X10^3/uL; Eosinophils% 3.7 % (0-5); Hematocrit 34.6 % (37-47); Hemoglobin 11.9 g/dl (12.0-15.0); Lymphocyte # 1.34 X10^3/ul (4.0); Lymphocyte % 22.3 % (19-41); Mean Corp Hgb Conc 34.4 g/gl (32-36); Mean Corpuscular Hgb 30.5 pg (27.0-32.0); Mean Corpuscular Volume 88.7 fL (81-99); Mean Platelet Vol. 9.8 fl (6.2-12.0); Monocyte# 0.27 X10^3/uL; Monocyte% 4.5 % (0-10); Neutrophil # 4.14 X10^3/uL (2.7-7.7); POSITIVE COUNT NO; POSITIVE DIFFERENTIAL NO; POSITIVE MORPHOLOGY NO; Platelet Count 72 K/mm3 (150-450); RBC Distribution Width CV 15.1 % (11.6-14.6); RBC Distribution Width SD 48.4 fl (35.1-43.9)
[2018-08-05] MEDS: HYDROmorphone 1 MG/ML Syringe IV (10:04)
[2018-08-05] MEDS: 0.9% Normal Saline 1,000 ML 1000 ML IV (10:04)
[2018-08-05] MEDS: Ondansetron 4 MG/2 ML Vial IV (10:04)
[2018-08-05 10:17] LABS: AST(SGOT) 33 U/L (15-37); Alanine Aminotransfer ALT/SGPT 40 U/L (13-56); Albumin, Serum 3.6 g/dL (3.2-5.0); Alkaline Phosphatase 119 U/L (45-117); Anion Gap 7 (5-15); BUN 28 mg/dL (7-18); BUN/Creat Ratio 21.1 RATIO (10-20); Bilirubin, Direct 0.21 mg/dL (0.00-0.30); Calcium,Total 8.6 mg/dL (8.5-10.1); Chloride 105 mmol/L (98-107); Creatinine, Serum 1.33 mg/dL (0.55-1.02); EST Glomerular Filtration Rate 45 mL/min (>60); Est Glom Filt Rate - Afr Amer 54 mL/min (>60); Estimated Creatinine Clearance 45.03 ml/min; Globulin 3.8 g/dL (2.2-4.2); Glucose 266 mg/dL (74-106); Lipase 49 U/L (73-393); Potassium 3.9 mmol/L (3.5-5.1); Protein, Total 7.4 g/dL (6.4-8.2); Sodium Level 138 mmol/L (136-145)
[2018-08-05] MEDS: proMETHazine 25 MG/ML Syringe 6.25 MG IV (11:48)
[2018-08-05 12:15] VITALS: BP 138/80; PULSE 75; RESP 14; O2SAT 97
[2018-08-05] MEDS: proMETHazine 25 MG/ML Syringe 12.5 MG IV (14:02)
[2018-08-05 14:28] VITALS: BP 129/80; PULSE 72; RESP 14; O2SAT 98
[2018-08-05 14:49] VITALS: BP 135/78; PULSE 70; RESP 14; O2SAT 96
--- NOTE | 2018-08-05 15:49 | PCM.HP.STD ---
Problem List (1) Intractable nausea and vomiting Status: Acute History of Present Illness Date of Admission: 08/05/18 Chief Complaint: intractable nausea and vomiting The patient is a 53 year old F with h/o morbid obesity, T1DM, celiac disease, NOYOLA and early cirrhosis from this. Presents to the hospital with intractable nausea and vomiting going on for the last few days and which has progressively been worsening. Patient unable to keep any food or fluids down. Questionable low grade fever yesterday. Patient also having some diarrhea - stools semi-formed. Known to have gastroparesis. has been getting regular infusions of iron and patient and spouse, who also provides most of the history, states that days following the infusions, patient suffers from bone pains and severe nausea and vomiting. This has never been communicated to the prescribing physician however. recently received and infusion Patient has some abdominal pain mainly in the RUQ. [] Past Medical History Past Medical History (Chronic Problems): Chronic Problems (Last Reviewed 07/09/18 @ 10:59 by Rachele Richardson) Diabetes type 1, uncontrolled (Chronic) IBS (irritable bowel syndrome) (Chronic) Hypothyroidism (Chronic) MANI (obstructive sleep apnea) (Chronic) Obesity (BMI 30-39.9) (Chronic) HLD (hyperlipidemia) (Chronic) Thrombocytopenia (Chronic) Coronary artery disease (Chronic) Asthma (Chronic) Diabetes mellitus type II (Chronic) Hypertension (Chronic) Medical History: Medical History (Last Reviewed 07/09/18 @ 10:59 by Rachele Richardson) Anemia D64.9 Anxiety and depression F41.9, F32.9 Asthma J45.909 Bone fracture T14.8XXA Carpal tunnel syndrome G56.00 Cataracts, bilateral H26.9 Chronic headaches R51 GERD (gastroesophageal reflux disease) K21.9 GI problem R19.8 Gallstones K80.20 Gastroparesis K31.84 H/O transfusion of whole blood Z92.89 Heart disease I51.9 High cholesterol E78.00 High triglycerides E78.1 Hives L50.9 IBS (irritable bowel syndrome) K58.9 Liver disease K76.9 Neuropathy G62.9 Pneumonia J18.9 Polycystic ovary E28.2 Recurrent UTI N39.0 Retinopathy H35.00 Seasonal allergies J30.2 Stomach ulcer K25.9 Thyroid disease E07.9 Type 1 diabetes mellitus E10.9 Dx : age 19 Last exacerbation : DKA : spring 2017 Hypoglycemic episode : never ER visit : spring 2017 Vascular disease I99.9 Vitamin deficiency E56.9 HTN (hypertension) I10 Allergies acetaminophen Allergy (Unknown, Verified 08/05/18 08:54) Unknown erythromycin base Allergy (Unknown, Verified 08/05/18 08:54) Unknown gluten Allergy (Unknown, Verified 08/05/18 08:54) Unknown adhesive Allergy (Verified 08/05/18 08:54) BLISTERS ADHESIVE ON BAND-AIDS linaclotide [From Linzess] Allergy (Verified 08/05/18 08:54) Nausea/Vom/Diarrhea sumatriptan [From Imitrex] Adverse Reaction (Intermediate, Verified 08/05/18 08:54) PALPITATIONS sumatriptan succinate [From Imitrex] Adverse Reaction (Intermediate, Verified 08/05/18 08:54) PALPITATIONS prednisone Adverse Reaction (Mild, Verified 08/05/18 08:54) Vomiting amoxicillin trihydrate [From Augmentin] Adverse Reaction (Verified 08/05/18 08:54) Nausea barium iodide Adverse Reaction (Verified 08/05/18 08:54) Nausea/Vom/Diarrhea citalopram Adverse Reaction (Verified 08/05/18 08:54) Unknown glyburide [From Glucovance] Adverse Reaction (Verified 08/05/18 08:54) Unknown ibuprofen Adverse Reaction (Verified 08/05/18 08:54) Unknown metformin [From Glucovance] Adverse Reaction (Verified 08/05/18 08:54) Unknown metoclopramide [From Reglan] Adverse Reaction (Verified 08/05/18 08:54) constant motion of legs and arms it didn't work morphine Adverse Reaction (Verified 08/05/18 08:54) Unknown naproxen Adverse Reaction (Verified 08/05/18 08:54) Unknown oxaprozin [From Daypro] Adverse Reaction (Verified 08/05/18 08:54) Unknown potassium clavulanate [From Augmentin] Adverse Reaction (Verified 08/05/18 08:54) Nausea prednisolone Adverse Reaction (Verified 08/05/18 08:54) Unknown pregabalin [From Lyrica] Adverse Reaction (Verified 08/05/18 08:54) Other TOTAL LOSS OF NERVES prochlorperazine [From Compazine] Adverse Reaction (Verified 08/05/18 08:54) Other tramadol Adverse Reaction (Verified 08/05/18 08:54) Other RESTLESS venlafaxine [From Effexor] Adverse Reaction (Verified 08/05/18 08:54) Unknown Home Medications: Ambulatory Orders Medication Instructions Recorded Levothyroxine [Synthroid] 150 mcg PO DAILY 07/02/15 Montelukast Sodium [Singulair] 10 mg PO QHS 07/02/15 Pantoprazole Sodium [Protonix] 40 mg PO DAILY 07/02/15 proMETHazine tablet [Phenergan 25 mg PO Q4H PRN PRN 07/02/15 tablet] Clopidogrel Bisulfate [Plavix] 75 mg PO DAILY 07/10/15 Losartan Potassium [Cozaar] 25 mg PO QHS 07/10/15 Rosuvastatin Calcium [Crestor] 10 mg PO QHS 12/01/15 Spironolactone [Aldactone] 25 mg PO DAILY 04/19/17 Furosemide [Lasix] 40 mg PO DAILY 10/04/17 insulin glargine (U-300) conc. 300 60 unit SC DAILY #12 ml 06/24/18 unit/mL (3 mL) subcutaneous pen insulin lispro (U- 100) 100 40 unit SC TID #30 ml 06/24/18 unit/mL subcutaneous pen Buspirone HCl 10 mg PO BID 08/05/18 Diazepam [Valium] 5 - 10 mg PO DAILY 08/05/18 Ergocalciferol [Vitamin D] 50,000 unit PO WESA 08/05/18 Oxymetazoline 0.05% [Afrin (BKC)] 1 spray NASAL DAILY 08/05/18 Surgical History: Surgical History (Last Reviewed 07/09/18 @ 10:59 by Rachele Richardson) H/O dilation and curettage Z98.890 H/O heart artery stent Z95.5 H/O oral surgery Z98.890 History of liver biopsy Z98.890 Hx of cholecystectomy Z90.49 S/P rotator cuff repair Z98.890 Surgical History: cholecystectomy, - - necrotizing fasciitis right calf with compartmental syndrome 12/2000, left shoulder surgery. 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 Smoking Status: Never smoker - *Family History Paternal Family History: Family History (Last Reviewed 07/09/18 @ 10:59 by Rachele Richardson) Mother Diabetes Heart disease Hypertension High cholesterol hormone problems Kidney disease CVA (cerebral vascular accident) Father Diabetes Sister Diabetes History Items: No pertinent history Maternal Family History: Family History (Last Reviewed 07/09/18 @ 10:59 by Rachele Richardson) Mother Diabetes Heart disease Hypertension High cholesterol hormone problems Kidney disease CVA (cerebral vascular accident) Father Diabetes Sister Diabetes History Items: No pertinent history Review of Systems Constitutional: Reports: Anorexia, Chills, Fever, Malaise, Weakness, Fatigue Eyes: Denies: Pain Cardiovascular: Denies: Chest Pain, Edema Respiratory: Denies: Cough, Shortness of Breath Gastrointestinal: Reports: Diarrhea, Nausea, Vomiting Comment: All other systems reviewed and are negative VTE Information - Inpt Only VTE Present on Admission: No VTE Mechan Device Prophylaxis: None VTE Pharm Prophylaxis ordered?: Yes Patient Problems: Active and Suspected Problems (Last Reviewed 07/09/18 @ 10:59 by Rachele Richardson) Intractable nausea and vomiting (Acute) - Physical Exam General: Oriented x3, Lethargic, - - acutely ill looking and in distress, asterixis noted HEENT: Atraumatic Oral: Moist Mucosa Neck: Supple, No JVD Lungs: Clear to auscultation, Normal air movement, No rhonchi, No wheeze, No rales Cardiovascular: Regular rate, Regular Rhythm, Normal S1, Normal S2, No murmurs, No Ectopic Activity Abdomen: Soft, Tender - tendewr in the RUQ, difficult to appreciate any organomegaly as patient sitting up Extremities: No clubbing, No cyanosis, No edema Skin: No rashes Musculoskeletal: No Muscle Wasting Neurological: Cranial nerves II-XII grossly intact, Deep Tendon Reflexes 2+/4 and Symmetrical Psych/Mental Status: Normal Affect, Restless Vital Signs Temp Pulse Resp BP Pulse Ox 97.6 F L 70 14 135/78 H 96 08/05/18 08:51 08/05/18 14:49 08/05/18 14:49 08/05/18 14:49 08/05/18 14:49 Oxygen Delivery Method Room Air Weight: 113.398 kg Body Mass Index (BMI) 41.5 Finger Stick Blood Glucose 306 Laboratory Tests Past 24 Hrs 08/05/18 08/05/18 09:50 09:50 WBC 6.0 RBC 3.90 L Hgb 11.9 L Hct 34.6 L MCV 88.7 MCH 30.5 MCHC 34.4 RDW 15.1 H RDW Differential 48.4 H Plt Count 72 L MPV 9.8 Immature Gran % (Auto) 0.200 Neut % (Auto) 69.0 Lymph % (Auto) 22.3 [place] % (Auto) 4.5 Eos % (Auto) 3.7 Baso % (Auto) 0.3 Absolute Neuts (auto) 4.1 Absolute Lymphs (auto) 1.34 Total Counted Not Reportable Sodium 138 Potassium 3.9 Chloride 105 Carbon Dioxide 26.0 Anion Gap 7 BUN 28 H Creatinine 1.33 H Estim Creat Clear Calc 45.03 Est GFR (MDRD) Af Amer 54 L Est GFR (MDRD) Non-Af 45 L BUN/Creatinine Ratio 21.1 H Glucose 266 H Calcium 8.6 Total Bilirubin 0.50 Direct Bilirubin 0.21 AST 33 ALT 40 Alkaline Phosphatase 119 H Total Protein 7.4 Albumin 3.6 Globulin 3.8 Lipase 49 L Assessment/Plan All Active Problems (Last Reviewed 07/09/18 @ 10:59 by Rachele Richardson) Intractable nausea and vomiting (Acute) Hyperammonemia (Acute) NOYOLA (nonalcoholic steatohepatitis) (Acute) Hypokalemia (Acute) Acute kidney injury (Acute) Anemia (Acute) Gastroparesis (Acute) 1. Intractable nausea and vomiting Likely secondary to diabetic gastroparesis and on top of that a side effect/adverse reaction to intravenous iron formulation (Injectafer) Will keep NPO and on IVFs Aggressive treatment with antiemetics and prokinetic agents 2. T1DM. Will be kept NPO and on dextrose Increase basal insulin and place only on SSI. 3. celiac disease. maintained don gluten free diet 4. 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 Seems not to be tolerating this. I have recommended to patient and spouse that perhaps change to another formulation better tolerated may be warranted, for example Venofer (iron sucrose) 5. NOYOLA. Stable 6. CAD s/p PTCA and stents. Continue on DAPT Code Visit Inpatient E&M: 44780 Init Hosp L3
[2018-08-05 15:54] VITALS: BMI 42.8
[2018-08-05 15:56] VITALS: BP 115/51; PULSE 70; RESP 22; TEMP 36.7; O2SAT 96
[2018-08-05] MEDS: Ondansetron 4 MG/2 ML Vial 8 MG IV ×2 (16:28→20:48)
[2018-08-05] MEDS: Metoclopramide 10 MG/2 ML Vial IV ×2 (16:28→23:08)
[2018-08-05] MEDS: Insulin Lispro 100 UNIT/ML INSULN.PEN SQ ×2 (18:45→23:15)
[2018-08-05 18:56] LABS: Bedside Glucose 380 mg/dL (70-110)
--- NOTE | 2018-08-05 18:56 | NURSING ---
pt states she had iron infusion 1 week ago and that this is her 2nd dose of IV iron. She stated that after 1st dose she had nausea, vomiting and bone pain but not to the degree that she experience today. She states that after the first infusion she experienced symptoms days after infusion.
--- NOTE | 2018-08-05 18:58 | NURSING ---
pt reports that she takes 80 units of long acting insulin at night. 60 given this evening with humalog sliding scale coverage
[2018-08-05 20:34] VITALS: BP 135/72; PULSE 78; RESP 18; TEMP 37.2; O2SAT 94
[2018-08-05] MEDS: Montelukast 10 MG Tablet PO (20:47)
[2018-08-05] MEDS: Losartan Potassium 25 MG Tablet PO (20:47)
[2018-08-05] MEDS: busPIRone 5 MG Tablet 10 MG PO (20:48)
[2018-08-05 22:57] LABS: Bacteria 0 SEEN /hpf (None Seen); Mucous, Urine 0 SEEN /hpf (<or=2+); Red Blood Cells-Urine 0 SEEN /hpf (0-5); White Blood Cells 0 SEEN /hpf (0-5)
[2018-08-05 23:21] LABS: Color, Urine Yellow (Yellow); Glucose, Dipstick 1000 mg/dl (Normal); Ketone-Dipstick 5 mg/dl (Negative); Leukocyte Esterase-Dipstick 25 /ul (Negative); Nitrite-Dipstick Negative (Negative); Occult Blood-Urine 10 /ul (Negative); Protein-Dipstick 30 mg/dl (Negative); Urine Bilirubin Dipstick Negative (Negative); Urine Clarity Clear (Clear); Urine Urobilinogen 1 mg/dl (Normal)
[2018-08-05 23:21] LABS: Bedside Glucose 293 mg/dL (70-110)
[2018-08-05 23:38] LABS: Squamous Epithelial Cells - UA 0-5 SEEN /hpf (5-10)
[2018-08-06 03:00] VITALS: BP 139/65; PULSE 66; RESP 16; TEMP 36.7; O2SAT 97
[2018-08-06] MEDS: Ondansetron 4 MG/2 ML Vial 8 MG IV ×2 (05:19→14:48)
[2018-08-06] MEDS: Metoclopramide 10 MG/2 ML Vial IV ×2 (05:20→12:19)
[2018-08-06] MEDS: Insulin Lispro 100 UNIT/ML INSULN.PEN SQ ×2 (05:31→12:19)
[2018-08-06 05:46] LABS: Bedside Glucose 327 mg/dL (70-110)
[2018-08-06 06:42] LABS: Absolute Lymphocyte Count 1.59 X10^3/ul (0.83-4.51); Absolute Neutrophil Count 3.6 X10^3/uL (2.0-7.7); Basophil# 0.03 X10^3/uL; Basophil% 0.5 % (0-1); Eosinophil# 0.17 X10^3/uL; Eosinophils% 2.9 % (0-5); Hematocrit 33.7 % (37-47); Hemoglobin 11.5 g/dl (12.0-15.0); Lymphocyte # 1.59 X10^3/ul (4.0); Lymphocyte % 27.6 % (19-41); Mean Corp Hgb Conc 34.1 g/gl (32-36); Mean Corpuscular Hgb 30.9 pg (27.0-32.0); Mean Corpuscular Volume 90.6 fL (81-99); Mean Platelet Vol. 10.5 fl (6.2-12.0); Monocyte# 0.36 X10^3/uL; Monocyte% 6.2 % (0-10); Neutrophil % 62.5 % (47-70); Platelet Count 74 K/mm3 (150-450); RBC Distribution Width CV 15.3 % (11.6-14.6); RBC Distribution Width SD 49.2 fl (35.1-43.9); Red Blood Count 3.72 M/mm3 (4.2-5.4); White Blood Count 5.8 K/mm3 (4.4-11.0)
[2018-08-06 06:45] LABS: POSITIVE COUNT NO; POSITIVE DIFFERENTIAL NO; POSITIVE MORPHOLOGY NO
--- NOTE | 2018-08-06 08:56 | PCM.PN.HOSP ---
Patient Problems: Active and Suspected Problems (Last Reviewed 07/09/18 @ 10:59 by Rachele Richardson) Intractable nausea and vomiting (Acute) Subjective: Patient was seen and examined. Admitted with intractable nausea and vomiting. Denies any of the above. Denies any fever or chills or abdominal discomfort. Ready to eat something. Wants to be discharged today Vitals/I&O's: Vital Signs Temp Pulse Resp BP Pulse Ox 98.0 F 66 16 139/65 H 97 08/06/18 03:00 08/06/18 03:00 08/06/18 03:00 08/06/18 03:00 08/06/18 03:00 Oxygen Delivery Method Room Air Weight: 116.8 kg Body Mass Index (BMI) 42.8 Finger Stick Blood Glucose 306 Intake and Output for Last 24 Hours 08/04/18 08/05/18 08/06/18 23:59 23:59 23:59 Intake Total 262 / 262 1250 / 1250 Balance 262 / 262 1250 / 1250 General: Alert, Oriented x3, Cooperative, No apparent distress, - HEENT: Atraumatic, PERRLA, EOMI, Normocephalic Oral: Moist Mucosa - Obese Neck: Supple, No JVD, Negative Carotid Bruits Lungs: Clear to auscultation, Normal air movement Cardiovascular: Regular rate, Regular Rhythm, Normal S1, Normal S2, No murmurs Abdomen: Bowel Sounds Present, Soft, Non Tender, Non-Distended, No Hepato-splenomegaly Extremities: No edema Skin: No rashes, No breakdown Musculoskeletal: No Tenderness to Palpation of Joints or Extremities Lymphatic: No Cervical, Supraclavicular, or Inguinal Adenopathy Neurological: Cranial nerves II-XII grossly intact, Motor Exam 5/5 strength throughout Psych/Mental Status: Normal Affect, Appropriate Laboratory Results 08/05/18 09:50: WBC 6.0, RBC 3.90 L, Hgb 11.9 L, Hct 34.6 L, MCV 88.7, MCH 30.5, MCHC 34.4, RDW 15.1 H, RDW Differential 48.4 H, Plt Count 72 L, MPV 9.8, Immature Gran % (Auto) 0.200, Neut % (Auto) 69.0, Lymph % (Auto) 22.3, [place] % (Auto) 4.5, Eos % (Auto) 3.7, Baso % (Auto) 0.3, Absolute Neuts (auto) 4.1, Absolute Lymphs (auto) 1.34, Total Counted Not Reportable 08/05/18 09:50: Sodium 138, Potassium 3.9, Chloride 105, Carbon Dioxide 26.0, Anion Gap 7, BUN 28 H, Creatinine 1.33 H, Estim Creat Clear Calc 45.03, Est GFR (MDRD) Af Amer 54 L, Est GFR (MDRD) Non-Af 45 L, BUN/Creatinine Ratio 21.1 H, Glucose 266 H, Calcium 8.6, Total Bilirubin 0.50, Direct Bilirubin 0.21, AST 33, ALT 40, Alkaline Phosphatase 119 H, Total Protein 7.4, Albumin 3.6, Globulin 3.8, Lipase 49 L 08/05/18 18:42: POC Glucose 380 H 08/05/18 22:56: Urine Color Yellow, Urine Clarity Clear, Urine pH 6.0, Ur Specific [place] 1.020, Urine Protein 30 H, Urine Glucose (UA) 1000 H, Urine Ketones 5 H, Urine Occult Blood 10 H, Urine Nitrite Negative, Urine Bilirubin Negative, Urine Urobilinogen 1 H, Ur Leukocyte Esterase 25 H, Urine RBC 0 SEEN, Urine WBC 0 SEEN, Ur Squamous Epith Cells 0-5 SEEN, Urine Bacteria 0 SEEN, Urine Mucus 0 SEEN 08/05/18 23:15: POC Glucose 293 H 08/06/18 05:28: POC Glucose 327 H 08/06/18 06:30: WBC 5.8, RBC 3.72 L, Hgb 11.5 L, Hct 33.7 L, MCV 90.6, MCH 30.9, MCHC 34.1, RDW 15.3 H, RDW Differential 49.2 H, Plt Count 74 L, MPV 10.5, Immature Gran % (Auto) 0.300, Neut % (Auto) 62.5, Lymph % (Auto) 27.6, [place] % (Auto) 6.2, Eos % (Auto) 2.9, Baso % (Auto) 0.5, Absolute Neuts (auto) 3.6, Absolute Lymphs (auto) 1.59, Total Counted Not Reportable Current Medications Buspirone HCl (Buspar) 10 mg PO BID SANGITA Last Admin: 08/05/18 20:48 Dose: 10 mg Clopidogrel Bisulfate (Plavix) 75 mg PO DAILY [facility] Dextrose (D50w Syringe) 0 gm IV X1 PRN; Protocol PRN Reason: Hypoglycemia Diazepam (Valium) 5 mg PO DAILY [facility] Enoxaparin Sodium (Lovenox) 40 mg SC DAILY@1000 SANG[facility] Glucagon () 1 mg IM .X1 PRN PRN Reason: Hypoglycemia Potassium Chloride/Dextrose/Sod Cl () 1,000 mls @ 125 mls/hr IV .Q8H [facility] Last Admin: 08/06/18 03:33 Dose: 125 mls/hr Insulin Glargine (Lantus (Bkc)) 60 units SC 0600,1800 [facility] Last Admin: 08/06/18 05:30 Dose: 60 units Insulin Human Lispro (Humalog Kwikpen ([facility])) 0 unit SQ Q6 [facility]; Protocol Last Admin: 08/06/18 05:31 Dose: 12 units Levothyroxine Sodium (Synthroid) 150 mcg PO DAILY@0600 [facility] Last Admin: 08/06/18 05:20 Dose: Not Given Losartan Potassium (Cozaar) 25 mg PO QHS [facility] Last Admin: 08/05/18 20:47 Dose: 25 mg Magnesium Hydroxide (Milk Of Magnesia) 30 ml PO DAILY PRN PRN PRN Reason: Constipation Metoclopramide HCl (Reglan) 10 mg IV Q6 [facility] Last Admin: 08/06/18 05:20 Dose: 10 mg Montelukast Sodium (Singulair) 10 mg PO QHS [facility] Last Admin: 08/05/18 20:47 Dose: 10 mg Ondansetron HCl (Zofran) 8 mg IV Q8 [facility] Last Admin: 08/06/18 05:19 Dose: 8 mg Prochlorperazine Edisylate (Compazine Iv) 10 mg IV Q6 PRN PRN Reason: NAUSEA/VOMITING Medical Necessity - Tobacco Use Smoking Status: Never smoker Tobacco Use: Cigarettes Assessment/Plan All Active Problems (Last Reviewed 07/09/18 @ 10:59 by Rachele Richardson) Intractable nausea and vomiting (Acute) Hyperammonemia (Acute) NOYOLA (nonalcoholic steatohepatitis) (Acute) Hypokalemia (Acute) Acute kidney injury (Acute) Anemia (Acute) Gastroparesis (Acute) 53-year-old female with past medical history of type I DM, celiac disease, NOYOLA/early cirrhosis admitted with intractable nausea and vomiting ongoing for 10 days. 1. Intractable nausea and vomiting, resolved, likely etiology is gastroparesis versus medication side effect Will continue to give patient supportive care, advance diet as tolerated 2. Type I DM,, patient kept n.p.o., kept on dextrose with a basal insulin and insulin sliding scale, would resume home insulin regimen 3. Celiac disease, on gluten-free diet 4. Iron deficiency anemia secondary to celiac disease, status post outpatient iron infusions 5. NOYOLA/cirrhosis, advised to lose weight,follow-up with outpatient GI 6. CAD status post stents, on Plavix, statin 7. Hypertension, controlled, continue on losartan 8. Hypothyroidism, on levothyroxine 9. Morbid obesity, BMI 42.8, weight loss, exercises recommended 10. DVT prophylaxis with Lovenox subcu Code Visit Inpatient E&M: 88921 Subs Hosp L2
[2018-08-06 09:00] VITALS: BP 120/62; PULSE 69; RESP 16; TEMP 37; O2SAT 98
[2018-08-06] MEDS: Clopidogrel Bisulfate 75 MG Tablet PO (09:37)
[2018-08-06] MEDS: busPIRone 5 MG Tablet 10 MG PO (09:37)
[2018-08-06] MEDS: Enoxaparin 40 MG/0.4 ML Syringe SC (09:38)
[2018-08-06 10:04] LABS: Anion Gap 8 (5-15); BUN 24 mg/dL (7-18); BUN/Creat Ratio 19.5 RATIO (10-20); Calcium,Total 8.3 mg/dL (8.5-10.1); Chloride 111 mmol/L (98-107); Creatinine, Serum 1.23 mg/dL (0.55-1.02); EST Glomerular Filtration Rate 49 mL/min (>60); Est Glom Filt Rate - Afr Amer 59 mL/min (>60); Estimated Creatinine Clearance 48.69 ml/min; Glucose 301 mg/dL (74-106); Potassium 4.2 mmol/L (3.5-5.1); Sodium Level 141 mmol/L (136-145)
--- NOTE | 2018-08-06 10:53 | DS.PCM_ITS ---
Discharge Date and Diagnosis Date of Admission: 08/05/18 Date of Discharge: 08/06/18 - Primary Discharge Diagnosis Active and Suspected Problems (Last Reviewed 07/09/18 @ 10:59 by Rachele Richardson) Intractable nausea and vomiting (Acute) DION - Secondary Discharge Diagnosis Chronic Problems (Last Reviewed 07/09/18 @ 10:59 by Rachele Richardson) Diabetes type 1, uncontrolled (Chronic) IBS (irritable bowel syndrome) (Chronic) Hypothyroidism (Chronic) MANI (obstructive sleep apnea) (Chronic) Obesity (BMI 30-39.9) (Chronic) HLD (hyperlipidemia) (Chronic) Thrombocytopenia (Chronic) Coronary artery disease (Chronic) Asthma (Chronic) Diabetes mellitus type II (Chronic) Hypertension (Chronic) Hospital Course and Treatment Imaging Results: Clinical Impression(s) from Imaging Studies Chest X-Ray 08/05/18 09:10 IMPRESSION: Minimal atelectasis versus scar at the right lung base. No evidence of focal lung infiltrate. Electronically Signed: Shannon Lott MD at 9:43 EDT , Service support , None Operations: None Procedures: None Summary of Care Provided: The patient is a 53 year old F with past medical history of type I DM, celiac disease, NOYOLA/early cirrhosis who was admitted with intractable nausea and vomiting that started soon after receiving IV iron. She was admitted to a telemetry bed and received IV fluids and treated symptomatically. Patient improved the next day and was able to tolerate a diet. 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 She was asked to discuss switching iron formulation and also follow-up for gastroparesis management. Subjective: On the day of discharge, patient was seen and examined. No new complaints. No more nausea or vomiting. Objective: General: Alert, Oriented x3, Cooperative, No apparent distress, obese HEENT: Atraumatic, PERRLA, EOMI, Normocephalic Oral: Moist Mucosa - Obese Neck: Supple, No JVD, Negative Carotid Bruits Lungs: Clear to auscultation, Normal air movement Cardiovascular: Regular rate, Regular Rhythm, Normal S1, Normal S2, No murmurs Abdomen: Bowel Sounds Present, Soft, Non Tender, Non-Distended, No Hepato- splenomegaly Extremities: No edema Skin: No rashes, No breakdown Musculoskeletal: No Tenderness to Palpation of Joints or Extremities Lymphatic: No Cervical, Supraclavicular, or Inguinal Adenopathy Neurological: Cranial nerves II-XII grossly intact, Motor Exam 5/5 strength throughout Psych/Mental Status: Normal Affect, Appropriate - Physical Exam Vital Signs Temp Pulse Resp BP Pulse Ox 98.0 F 66 16 139/65 H 97 08/06/18 03:00 08/06/18 03:00 08/06/18 03:00 08/06/18 03:00 08/06/18 03:00 Oxygen Delivery Method Room Air Weight: 116.8 kg Body Mass Index (BMI) 42.8 Finger Stick Blood Glucose 306 Intake and Output for Last 24 Hours 08/04/18 08/05/18 08/06/18 23:59 23:59 23:59 Intake Total 262 / 262 1250 / 1250 Balance 262 / 262 1250 / 1250 Laboratory Tests Past 24 Hrs 08/05/18 08/06/18 08/06/18 22:56 06:30 06:30 WBC 5.8 RBC 3.72 L Hgb 11.5 L Hct 33.7 L MCV 90.6 MCH 30.9 MCHC 34.1 RDW 15.3 H RDW Differential 49.2 H Plt Count 74 L MPV 10.5 Immature Gran % (Auto) 0.300 Neut % (Auto) 62.5 Lymph % (Auto) 27.6 [place] % (Auto) 6.2 Eos % (Auto) 2.9 Baso % (Auto) 0.5 Absolute Neuts (auto) 3.6 Absolute Lymphs (auto) 1.59 Total Counted Not Reportable Sodium 141 Potassium 4.2 Chloride 111 H Carbon Dioxide 22.0 Anion Gap 8 BUN 24 H Creatinine 1.23 H Estim Creat Clear Calc 48.69 Est GFR (MDRD) Af Amer 59 L Est GFR (MDRD) Non-Af 49 L BUN/Creatinine Ratio 19.5 Glucose 301 H Calcium 8.3 L Urine Color Yellow Urine Clarity Clear Urine pH 6.0 Ur Specific [place] 1.020 Urine Protein 30 H Urine Glucose (UA) 1000 H Urine Ketones 5 H Urine Occult Blood 10 H Urine Nitrite Negative Urine Bilirubin Negative Urine Urobilinogen 1 H Ur Leukocyte Esterase 25 H Urine RBC 0 SEEN Urine WBC 0 SEEN Ur Squamous Epith Cells 0-5 SEEN Urine Bacteria 0 SEEN Urine Mucus 0 SEEN POC Glucose 08/06/18 08/05/18 08/05/18 05:28 23:15 18:42 POC Glucose 327 H 293 H 380 H Discharge Diet: 2000 mg Sodium Diet, Carb Control Diet Discharge Activity: Return to Normal Activity Home Medications: Medications to take at Discharge Levothyroxine [Synthroid] 150 mcg PO DAILY 07/02/15 Montelukast Sodium [Singulair] 10 mg PO QHS 07/02/15 Pantoprazole Sodium [Protonix] 40 mg PO DAILY 07/02/15 proMETHazine tablet [Phenergan tablet] 25 mg PO Q4H PRN PRN 07/02/15 Clopidogrel Bisulfate [Plavix] 75 mg PO DAILY 07/10/15 Losartan Potassium [Cozaar] 25 mg PO QHS 07/10/15 Rosuvastatin Calcium [Crestor] 10 mg PO QHS 12/01/15 Spironolactone [Aldactone] 25 mg PO DAILY 04/19/17 Furosemide [Lasix] 40 mg PO DAILY 10/04/17 insulin glargine (U-300) conc. 300 unit/mL (3 mL) subcutaneous pen 60 unit SC DAILY #12 ml 06/24/18 insulin lispro (U- 100) 100 unit/mL subcutaneous pen 40 unit SC TID #30 ml 06/24/18 Buspirone HCl 10 mg PO BID 08/05/18 Diazepam [Valium] 5 - 10 mg PO DAILY 08/05/18 Ergocalciferol [Vitamin D] 50,000 unit PO WESA 08/05/18 Oxymetazoline 0.05% [Afrin (BKC)] 1 spray NASAL DAILY 08/05/18 Primary Care Physician: Kaylee Franco MD [Primary Care Provider] - Please follow up with your Primary Care Physician in: within 2 weeks When: [place] [employer] within 2 weeks Disposition: Home Minutes spent on discharge:: 35 Patient Condition:: Stable Medical Necessity - Tobacco Use Smoking Status: Never smoker Tobacco Use: Cigarettes Meaningful Use Info Meaningful Use Diagnoses (Choose all that apply): None applicable Code Visit Inpatient E&M: 39531 Disch Hosp
--- NOTE | 2018-08-06 10:53 | DCINST_ITS ---
- Discharge Diagnoses Current Active Problems: Current Active and Chronic Problems (Last Reviewed 07/09/18 @ 10:59 by Rachele Richardson) Intractable nausea and vomiting (Acute) Reason(s) for Visit for Discharge Instructions: Intractable nausea and vomiting You will use the following diet at home:: Calorie/Carbohydrate Controlled (specify 1200, 1400, etc), Cardiac Your food should be the consistency of: Regular Your liquids should be the consistency of: Regular/Thin Discharge Activity: Return to Normal Activity Additional Instructions: Continue to follow-up with your senior manager creative services and PCP. Allergies/Adverse Reactions: Allergies acetaminophen Allergy (Unknown, Verified 08/05/18 08:54) Unknown erythromycin base Allergy (Unknown, Verified 08/05/18 08:54) Unknown gluten Allergy (Unknown, Verified 08/05/18 08:54) Unknown adhesive Allergy (Verified 08/05/18 08:54) BLISTERS ADHESIVE ON BAND-AIDS linaclotide [From Linzess] Allergy (Verified 08/05/18 08:54) Nausea/Vom/Diarrhea sumatriptan [From Imitrex] Adverse Reaction (Intermediate, Verified 08/05/18 08:54) PALPITATIONS sumatriptan succinate [From Imitrex] Adverse Reaction (Intermediate, Verified 08/05/18 08:54) PALPITATIONS prednisone Adverse Reaction (Mild, Verified 08/05/18 08:54) Vomiting amoxicillin trihydrate [From Augmentin] Adverse Reaction (Verified 08/05/18 08:54) Nausea barium iodide Adverse Reaction (Verified 08/05/18 08:54) Nausea/Vom/Diarrhea citalopram Adverse Reaction (Verified 08/05/18 08:54) Unknown glyburide [From Glucovance] Adverse Reaction (Verified 08/05/18 08:54) Unknown ibuprofen Adverse Reaction (Verified 08/05/18 08:54) Unknown metformin [From Glucovance] Adverse Reaction (Verified 08/05/18 08:54) Unknown metoclopramide [From Reglan] Adverse Reaction (Verified 08/05/18 08:54) constant motion of legs and arms it didn't work morphine Adverse Reaction (Verified 08/05/18 08:54) Unknown naproxen Adverse Reaction (Verified 08/05/18 08:54) Unknown oxaprozin [From Daypro] Adverse Reaction (Verified 08/05/18 08:54) Unknown potassium clavulanate [From Augmentin] Adverse Reaction (Verified 08/05/18 08:54) Nausea prednisolone Adverse Reaction (Verified 08/05/18 08:54) Unknown pregabalin [From Lyrica] Adverse Reaction (Verified 08/05/18 08:54) Other TOTAL LOSS OF NERVES prochlorperazine [From Compazine] Adverse Reaction (Verified 08/05/18 08:54) Other tramadol Adverse Reaction (Verified 08/05/18 08:54) Other RESTLESS venlafaxine [From Effexor] Adverse Reaction (Verified 08/05/18 08:54) Unknown Medications to take at Discharge Levothyroxine [Synthroid] 150 mcg PO DAILY 07/02/15 Montelukast Sodium [Singulair] 10 mg PO QHS 07/02/15 Pantoprazole Sodium [Protonix] 40 mg PO DAILY 07/02/15 proMETHazine tablet [Phenergan tablet] 25 mg PO Q4H PRN PRN 07/02/15 Clopidogrel Bisulfate [Plavix] 75 mg PO DAILY 07/10/15 Losartan Potassium [Cozaar] 25 mg PO QHS 07/10/15 Rosuvastatin Calcium [Crestor] 10 mg PO QHS 12/01/15 Spironolactone [Aldactone] 25 mg PO DAILY 04/19/17 Furosemide [Lasix] 40 mg PO DAILY 10/04/17 insulin glargine (U-300) conc. 300 unit/mL (3 mL) subcutaneous pen 60 unit SC DAILY #12 ml 06/24/18 insulin lispro (U- 100) 100 unit/mL subcutaneous pen 40 unit SC TID #30 ml 06/24/18 Buspirone HCl 10 mg PO BID 08/05/18 Diazepam [Valium] 5 - 10 mg PO DAILY 08/05/18 Ergocalciferol [Vitamin D] 50,000 unit PO WESA 08/05/18 Oxymetazoline 0.05% [Afrin (BKC)] 1 spray NASAL DAILY 08/05/18 Primary Care Physician: Kaylee Franco MD [Primary Care Provider] - Please follow up with your Primary Care Physician in: within 2 weeks Test Results: Test results from this visit will be discussed in further detail at your follow- up appointment, if applicable. When: Barber Tool Sharpener within 2 weeks Proposed Discharge Date: 08/06/18
[2018-08-06 12:11] LABS: Bedside Glucose 261 mg/dL (70-110)
--- NOTE | 2018-08-06 14:18 | CHAPLAIN ---
Type of Pastoral Visit _x__ Initial Visit ___ Follow-up Visit ___ On-call Visit ___ General Patient Visit ___ Spiritual Assessment ___ Family Conference ___ Bereavement ___ Rapid Response ___ Code Blue ___ Other (describe below) Pastoral Care Referral From _x__ Patient ___ Family ___ Nurse ___ Physician ___ Expander ___ Surfacing Machine Operator ___ Other (describe below) Sacrament/Intervention ___ Active listening ___ Anointing ___ Yazdanism ___ Bereavement ___ Communion ___ Jane exploration ___ ___ Life review ___ Prayer ___ Reconciliation ___ Sacrament of Sick _x__ Supportive presence ___ Wedding ___ Other (describe below) Pastoral Comments patient is being discharged; greeted pt and wished her well; offered support in future as needed
[2018-08-06 15:00] VITALS: BP 138/66; PULSE 70; RESP 18; TEMP 36.9; O2SAT 97
== END 2018-08-06 15:46 | disposition home or self-care (01) ==
LOC: ED 14:47 → MS2 15:08
PROVIDERS: Admitting Provider Internal Medicine; Emergency Provider Emergency Medicine; Family Provider Internal Medicine; PCP Internal Medicine; Visit Provider Internal Medicine
DX: R11.2 Nausea with vomiting, unspecified (principal); I25.10 Atherosclerotic heart disease of native coronary artery without angina pectoris; K75.81 Nonalcoholic steatohepatitis (NASH); K74.69 Other cirrhosis of liver; E66.01 Morbid (severe) obesity due to excess calories; Z68.41 Body mass index [BMI] 40.0-44.9, adult; E10.65 Type 1 diabetes mellitus with hyperglycemia; Z71.3 Dietary counseling and surveillance; K58.9 Irritable bowel syndrome, unspecified; Z79.899 Other long term (current) drug therapy; Z79.02 Long term (current) use of antithrombotics/antiplatelets; Z79.4 Long term (current) use of insulin; K31.84 Gastroparesis; G47.33 Obstructive sleep apnea (adult) (pediatric); E78.5 Hyperlipidemia, unspecified; K21.9 Gastro-esophageal reflux disease without esophagitis; F41.9 Anxiety disorder, unspecified; F32.9 Major depressive disorder, single episode, unspecified; K90.0 Celiac disease; D50.8 Other iron deficiency anemias; K90.9 Intestinal malabsorption, unspecified; N17.9 Acute kidney failure, unspecified; R19.7 Diarrhea, unspecified; E03.9 Hypothyroidism, unspecified; E86.0 Dehydration; G89.29 Other chronic pain; R14.0 Abdominal distension (gaseous); K74.60 Unspecified cirrhosis of liver
CPT/HCPCS: 36415; 71045; 74177; 80048; 80076; 81001; 82962; 83690; 85025; 96361; 96372; 96374; 96375; 96376; 97802; 99218; 99283; J7030; Q9967; A4216; G0378; J2405

== ENCOUNTER 2018-10-07 12:42 | Inpatient (IN) | payer MEDICARE, SELFPAY ==
[2018-10-07 11:25] VITALS: BMI 43.4
[2018-10-07 12:42] VITALS: BP 168/69; PULSE 76; RESP 18; TEMP 36.6; O2SAT 98; BMI 41.8
[2018-10-07] MEDS: 0.9% Normal Saline 1,000 ML 1000 ML IV (13:12)
[2018-10-07] MEDS: proMETHazine 25 MG/ML Syringe 12.5 MG IV (13:12)
[2018-10-07] MEDS: DiphenhydrAMINE 50 MG/ML Syringe 25 MG IV (13:12)
[2018-10-07 13:15] LABS: Absolute Lymphocyte Count 1.32 X10^3/ul (0.83-4.51); Basophil# 0.03 X10^3/uL; Basophil% 0.6 % (0-1); Eosinophil# 0.24 X10^3/uL; Eosinophils% 4.9 % (0-5); Hematocrit 38.3 % (37-47); Hemoglobin 13.1 g/dl (12.0-15.0); Lymphocyte # 1.32 X10^3/ul (4.0); Lymphocyte % 26.9 % (19-41); Mean Corp Hgb Conc 34.2 g/gl (32-36); Mean Corpuscular Hgb 30.9 pg (27.0-32.0); Mean Corpuscular Volume 90.3 fL (81-99); Monocyte# 0.37 X10^3/uL; Monocyte% 7.5 % (0-10); Neutrophil # 2.95 X10^3/uL (2.7-7.7); Neutrophil % 60.1 % (47-70); Platelet Count 79 K/mm3 (150-450); RBC Distribution Width CV 13.4 % (11.6-14.6); RBC Distribution Width SD 43.9 fl (35.1-43.9); Red Blood Count 4.24 M/mm3 (4.2-5.4); White Blood Count 4.9 K/mm3 (4.4-11.0)
[2018-10-07 13:16] LABS: POSITIVE COUNT NO; POSITIVE DIFFERENTIAL NO; POSITIVE MORPHOLOGY NO
[2018-10-07 13:28] LABS: AST(SGOT) 30 U/L (15-37); Alanine Aminotransfer ALT/SGPT 37 U/L (13-56); Albumin, Serum 4.1 g/dL (3.2-5.0); Alkaline Phosphatase 139 U/L (45-117); Anion Gap 7 (5-15); BUN 27 mg/dL (7-18); BUN/Creat Ratio 19.3 RATIO (10-20); Calcium,Total 9.3 mg/dL (8.5-10.1); Chloride 104 mmol/L (98-107); EST Glomerular Filtration Rate 42 mL/min (>60); Est Glom Filt Rate - Afr Amer 51 mL/min (>60); Globulin 4.1 g/dL (2.2-4.2); Glucose 380 mg/dL (74-106); Lipase 68 U/L (73-393); Potassium 4.5 mmol/L (3.5-5.1); Protein, Total 8.2 g/dL (6.4-8.2); Sodium Level 138 mmol/L (136-145)
--- NOTE | 2018-10-07 14:55 | ED.VISSUMM ---
- ER Visit Summary Date of Service: 10/07/18 Chief Complaint: [Nausea and vomiting and headache] History of Present Illness: The patient is a 53 F [presents the emergency department with multiple complaints today. Patient saw her eye doctor earlier today and was complaining of some blurred vision. Patient complains of a migraine type headache with nausea and vomiting today. Patient also has a history of cyclic vomiting syndrome and gastroparesis. Patient also has a history of Constantino syndrome however she does not take her lactulose because it makes her sick. Her significant other states that patient's been more [place] of late. No significant confusion noted. Patient denies any fever or recent illness other than she has recently been on Levaquin for an ear infection.] Physical Examination: [HEENT-PERRLA, EOMI. Cranial nerves II through XII grossly intact. TMs clear. Mucous membranes moist. No adenopathy. Cardiovascular-regular rate and rhythm without murmur or ectopy Lungs-clear to auscultation, chest wall stable without crepitus or subcu emphysema Abdomen-normoactive bowel sounds, soft, nontender, no rebound or rigidity, no peritoneal signs. Extremities-intact ?4, normal range of motion, normal pulses, atraumatic] Test Results: [CBC with differential obtained showed a white count of 4.9, hemoglobin 13, hematocrit 38, platelets 79. Chemistries unremarkable. Glucose was 380. BUN 27, creatinine 1.40. Ammonia was elevated at 150. Lipase was 68. LFTs unremarkable.] Emergency Department Course and Treatment: [She was given a liter normal same fluid bolus as well as Phenergan and Benadryl. Patient was ordered lactulose and rifaximin] Treatment Plan: [Admit] Disposition: [Admit] Impression: [Hepatic encephalopathy Hyperglycemia Migraine headache Vomiting] This note was generated with [employer] dictation software. It may contain incorrect words, spelling, and punctuation that were not noted in review of the chart prior to signing ED Disposition - Plan for ED Patient: Chief Complaint: Nausea/Vomiting Referrals: Kaylee Franco MD [Primary Care Provider] -
--- NOTE | 2018-10-07 15:00 | ED.DCSUM_ITS ---
- ER Visit Summary Date of Service: 10/07/18 Chief Complaint: [Nausea and vomiting and headache] History of Present Illness: The patient is a 53 F [presents the emergency department with multiple complaints today. Patient saw her eye doctor earlier today and was complaining of some blurred vision. Patient complains of a migraine type headache with nausea and vomiting today. Patient also has a history of cyclic vomiting syndrome and gastroparesis. Patient also has a history of Constantino syndrome however she does not take her lactulose because it makes her sick. Her significant other states that patient's been more [place] of late. No significant confusion noted. Patient denies any fever or recent ill ness other than she has recently been on Levaquin for an ear infection.] Physical Examination: [HEENT-PERRLA, EOMI. Cranial nerves II through XII grossly intact. TMs clear. Mucous membranes moist. No adenopathy. Cardiovascular-regular rate and rhythm without murmur or ectopy Lungs-clear to auscultation, chest wall stable without crepitus or subcu emphysema Abdomen-normoactive bowel sounds, soft, nontender, no rebound or rigidity, no peritoneal signs. Extremities-intact ?4, normal range of motion, normal pulses, atraumatic] Test Results: [CBC with differential obtained showed a white count of 4.9, hemoglobin 13, hematocrit 38, platelets 79. Chemistries unremarkable. Glucose was 380. BUN 27, creatinine 1.40. Ammonia was elevated at 150. Lipase was 68. LFTs unremarkable.] Emergency Department Course and Treatment: [She was given a liter normal same fluid bolus as well as Phenergan and Benadryl. Patient was ordered lactulose and rifaximin] Treatment Plan: [Admit] Disposition: [Admit] Impression: [Hepatic encephalopathy Hyperglycemia Migraine headache Vomiting] This note was generated with [employer] dictation software. It may contain incorrect words, spelling, and punctuation that were not noted in review of the chart prior to signing ED Disposition - Plan for ED Patient: Chief Complaint: Nausea/Vomiting Referrals: Kaylee Franco MD [Primary Care Provider] -
--- NOTE | 2018-10-07 15:05 | NURSING ---
MED SURG SEMENTI HEPATIC ENCEPHALOPATHY, HYPERGLYCEMIA, VOMITING
[2018-10-07 15:31] VITALS: BMI 41.8
--- NOTE | 2018-10-07 15:32 | PCM.HP.STD ---
Problem List (1) Intractable nausea and vomiting Status: Acute (2) Diabetes type 1, uncontrolled Status: Chronic Qualifiers: (3) Hyperammonemia Status: Acute (4) NOYOLA (nonalcoholic steatohepatitis) Status: Chronic (5) IBS (irritable bowel syndrome) Status: Chronic Qualifiers: (6) Hypothyroidism Status: Chronic Qualifiers: (7) MANI (obstructive sleep apnea) Status: Chronic (8) HLD (hyperlipidemia) Status: Chronic Qualifiers: (9) Thrombocytopenia Status: Chronic (10) Hypokalemia Status: Resolved (11) Acute kidney injury Status: Resolved (12) Anemia Status: Resolved (13) Coronary artery disease Status: Chronic Qualifiers: (14) Asthma Status: Chronic (15) Gastroparesis Status: Chronic (16) Hypertension Status: Chronic (17) Celiac disease Status: Chronic (18) Morbid obesity with BMI of 40.0-44.9, adult Status: Chronic History of Present Illness Date of Admission: 10/07/18 Chief Complaint: nausea, blurred vision, emesis The patient is a 53 year old F with a past medical history of diabetes mellitus type 1 since the age of 19, gastroparesis, celiac disease, coronary artery disease with history of PTCA, obesity, hypertension, NOYOLA, chronic thrombocytopenia, HLD and asthma scented to the emergency department at [facility] on 10/07/2018 complaining of nausea with emesis, blurred vision. Denies diarrhea and admits to some abdominal pain....she thinks from vomiting. No fever or chills. Felling better after Phenergan in the ED but, lab revealed an ammonia of 150. She denies confusion or lethargy. She has in the past been on Lactulose but, has not taken in 1 year because it makes her nauseated. She is not on Rifaximin. She sometimes has to take sennokot for constipation. She follows a diet for carb control and for gastroparesis and drinks 2 protein shakes a day. She follows with a GI doc at the [facility]. She has no asterixis on PE and she is alert and oriented X3. She is being admitted for hyperammonemia. Past Medical History Past Medical History (Chronic Problems): Chronic Problems (Last Reviewed 10/07/18 @ 11:22 by Diana Duke) Celiac disease (Chronic) Morbid obesity with BMI of 40.0-44.9, adult (Chronic) Diabetes type 1, uncontrolled (Chronic) NOYOLA (nonalcoholic steatohepatitis) (Chronic) IBS (irritable bowel syndrome) (Chronic) Hypothyroidism (Chronic) MANI (obstructive sleep apnea) (Chronic) HLD (hyperlipidemia) (Chronic) Thrombocytopenia (Chronic) Coronary artery disease (Chronic) Asthma (Chronic) Gastroparesis (Chronic) Hypertension (Chronic) Medical History: Medical History (Last Reviewed 10/07/18 @ 15:45 by Aggie Negrete DO) Anemia D64.9 Anxiety and depression F41.9, F32.9 Asthma J45.909 Bone fracture T14.8XXA Carpal tunnel syndrome G56.00 Cataracts, bilateral H26.9 Chronic headaches R51 GERD (gastroesophageal reflux disease) K21.9 GI problem R19.8 Gallstones K80.20 Gastroparesis K31.84 H/O transfusion of whole blood Z92.89 Heart disease I51.9 High cholesterol E78.00 High triglycerides E78.1 Hives L50.9 IBS (irritable bowel syndrome) K58.9 Liver disease K76.9 Neuropathy G62.9 Pneumonia J18.9 Polycystic ovary E28.2 Recurrent UTI N39.0 Retinopathy H35.00 Seasonal allergies J30.2 Stomach ulcer K25.9 Thyroid disease E07.9 Type 1 diabetes mellitus E10.9 Dx : age 19 Last exacerbation : DKA : spring 2017 Hypoglycemic episode : never ER visit : spring 2017 Vascular disease I99.9 Vitamin deficiency E56.9 HTN (hypertension) I10 Allergies acetaminophen Allergy (Unknown, Verified 10/07/18 12:45) Unknown erythromycin base Allergy (Unknown, Verified 10/07/18 12:45) Unknown gluten Allergy (Unknown, Verified 10/07/18 12:45) Unknown adhesive Allergy (Verified 10/07/18 12:45) BLISTERS ADHESIVE ON BAND-AIDS linaclotide [From Linzess] Allergy (Verified 10/07/18 12:45) Nausea/Vom/Diarrhea sumatriptan [From Imitrex] Adverse Reaction (Intermediate, Verified 10/07/18 12:45) PALPITATIONS sumatriptan succinate [From Imitrex] Adverse Reaction (Intermediate, Verified 10/07/18 12:45) PALPITATIONS prednisone Adverse Reaction (Mild, Verified 10/07/18 12:45) Vomiting amoxicillin trihydrate [From Augmentin] Adverse Reaction (Verified 10/07/18 12:45) Nausea barium iodide Adverse Reaction (Verified 10/07/18 12:45) Nausea/Vom/Diarrhea citalopram Adverse Reaction (Verified 10/07/18 12:45) Unknown glyburide [From Glucovance] Adverse Reaction (Verified 10/07/18 12:45) Unknown ibuprofen Adverse Reaction (Verified 10/07/18 12:45) Unknown metformin [From Glucovance] Adverse Reaction (Verified 10/07/18 12:45) Unknown metoclopramide [From Reglan] Adverse Reaction (Verified 10/07/18 12:45) constant motion of legs and arms it didn't work morphine Adverse Reaction (Verified 10/07/18 12:45) Unknown naproxen Adverse Reaction (Verified 10/07/18 12:45) Unknown oxaprozin [From Daypro] Adverse Reaction (Verified 10/07/18 12:45) Unknown potassium clavulanate [From Augmentin] Adverse Reaction (Verified 10/07/18 12:45) Nausea prednisolone Adverse Reaction (Verified 10/07/18 12:45) Unknown pregabalin [From Lyrica] Adverse Reaction (Verified 10/07/18 12:45) Other TOTAL LOSS OF NERVES prochlorperazine [From Compazine] Adverse Reaction (Verified 10/07/18 12:45) Other tramadol Adverse Reaction (Verified 10/07/18 12:45) Other RESTLESS venlafaxine [From Effexor] Adverse Reaction (Verified 10/07/18 12:45) Unknown Home Medications: Ambulatory Orders Medication Instructions Recorded Levothyroxine [Synthroid] 150 mcg PO DAILY 07/02/15 Pantoprazole Sodium [Protonix] 40 mg PO DAILY 07/02/15 proMETHazine tablet [Phenergan 25 mg PO Q4H PRN PRN 07/02/15 tablet] Clopidogrel Bisulfate [Plavix] 75 mg PO DAILY 07/10/15 Losartan Potassium [Cozaar] 25 mg PO QHS 07/10/15 Rosuvastatin Calcium [Crestor] 10 mg PO QHS 12/01/15 Spironolactone [Aldactone] 25 mg PO DAILY 04/19/17 Ergocalciferol [Vitamin D] 50,000 unit PO WESA 08/05/18 Oxymetazoline 0.05% [Afrin (BKC)] 1 spray NASAL DAILY 08/05/18 ALPRAZolam [Xanax] 1 mg PO QHS 10/07/18 Buspirone HCl [Buspar] 10 mg PO BID 10/07/18 Furosemide [Lasix] 20 mg PO BID 10/07/18 Insulin Glargine,Hum.rec.anlog 120 units SQ QHS 10/07/18 [Toujeo Solostar] Montelukast [Singulair] 10 mg PO QHS 10/07/18 insulin lispro (U- 100) 100 See Rx Instructions SC TID #132 ml 10/07/18 unit/mL subcutaneous pen Surgical History: Surgical History (Last Reviewed 10/07/18 @ 15:45 by Aggei Negrete DO) H/O dilation and curettage Z98.890 H/O heart artery stent Z95.5 H/O oral surgery Z98.890 History of liver biopsy Z98.890 Hx of cholecystectomy Z90.49 S/P rotator cuff repair Z98.890 Surgical History: cholecystectomy, - - necrotizing fasciitis right calf with compartmental syndrome 12/2000, left shoulder surgery. Surgery to repair Left humerus fx Psychiatric History: Anxiety, Depression TOBACCO DRUMMER History: No pertinent TOBACCO DRUMMER history Lives: Spouse/ Significant Other Smoking Status: Never smoker Tobacco Use: Non-smoker Alcohol: Rare Drugs: None - *Family History Paternal Family History: Family History (Last Reviewed 10/07/18 @ 15:46 by Aggie Negrete DO) Mother Diabetes Heart disease Hypertension High cholesterol hormone problems Kidney disease CVA (cerebral vascular accident) Father Diabetes Sister Diabetes History Items: No pertinent history Maternal Family History: Family History (Last Reviewed 10/07/18 @ 15:46 by Aggie Negrete DO) Mother Diabetes Heart disease Hypertension High cholesterol hormone problems Kidney disease CVA (cerebral vascular accident) Father Diabetes Sister Diabetes History Items: No pertinent history Review of Systems Constitutional: Reports: Anorexia. Denies: Chills, Fever, Weakness, Weight Change Eyes: Reports: Blurred vision HEENT: Denies: Difficulty Swallowing, Head Aches, Sinus Congestion, Sinus Drainage Cardiovascular: Denies: Chest Pain, Palpitations Respiratory: Denies: Cough, Shortness of breath at rest, Sputum production Gastrointestinal: Reports: Abdominal Pain, Constipation - at times and she takes Sennokot, Nausea, Vomiting. Denies: Diarrhea Genitourinary: Denies: Dysuria Gynecological: Denies: Vaginal discharge Musculoskeletal: Reports: Back Pain. Denies: Joint Pain, Joint Tenderness Skin: Denies: Jaundice, Rash, Wounds Neurological: Denies: Confusion, Focal weakness, Numbness, Tingling, Tremor, Seizures Psychiatric: Denies: Anxiety, Depression, Homicidal Ideations, Suicidal Ideations Endocrine: Reports: Change in Body Habitus - gaining weight Hematologic/ Lymphatic: Denies: Easy Bruising, Easy Bleeding, Hx of blood clot VTE Information - Inpt Only VTE Present on Admission: No VTE Mechan Device Prophylaxis: SCD's, Knee High AYLA Hose VTE Pharm Prophylaxis ordered?: No Reason prophylaxis not ordered:: Treatment Not Indicated - pt has moderate thrombocytopenia - Physical Exam General: Alert, Oriented x3, Cooperative, No apparent distress, Well developed, Well nourished HEENT: Atraumatic, PERRLA, EOMI, Normocephalic Oral: Dry Mucosa Neck: Supple, No JVD, Negative Carotid Bruits Lungs: Clear to auscultation, Normal air movement Cardiovascular: Regular rate, Normal S1, Normal S2, No murmurs, No rub noted, No Gallop Abdomen: Bowel Sounds Present, Soft, Non-Distended, Tender, - - no guarding with palpation Extremities: No clubbing, No cyanosis, No edema, Capillary Refill Less than 3 Seconds, No Calf Tenderness, Peripheral Pulses Normal Skin: No rashes, No breakdown Musculoskeletal: No Tenderness to Palpation of Joints or Extremities Neurological: Cranial nerves II-XII grossly intact, Neuro grossly intact - limited ROM with the left arm due to old fracture and subsequent repair of Left humerus fracture, - - no tremor and no asterixis Psych/Mental Status: Normal Affect, Appropriate Vital Signs Temp Pulse Resp BP Pulse Ox 97.8 F 76 18 168/69 H 98 10/07/18 12:42 10/07/18 12:42 10/07/18 12:42 10/07/18 12:42 10/07/18 12:42 Weight: 259 lb Body Mass Index (BMI) 41.8 Finger Stick Blood Glucose 306 Laboratory Tests Past 24 Hrs 10/07/18 10/07/18 10/07/18 13:05 13:05 13:05 WBC 4.9 RBC 4.24 Hgb 13.1 Hct 38.3 MCV 90.3 MCH 30.9 MCHC 34.2 RDW 13.4 RDW Differential 43.9 Plt Count 79 L MPV 10.0 Immature Gran % (Auto) 0.000 Neut % (Auto) 60.1 Lymph % (Auto) 26.9 [place]y % (Auto) 7.5 Eos % (Auto) 4.9 Baso % (Auto) 0.6 Absolute Neuts (auto) 3.0 Absolute Lymphs (auto) 1.32 Total Counted Not Reportable Sodium 138 Potassium 4.5 Chloride 104 Carbon Dioxide 27.0 Anion Gap 7 BUN 27 H Creatinine 1.40 H Estim Creat Clear Calc 44.50 Est GFR (MDRD) Af Amer 51 L Est GFR (MDRD) Non-Af 42 L BUN/Creatinine Ratio 19.3 Glucose 380 H Calcium 9.3 Total Bilirubin 0.70 AST 30 ALT 37 Alkaline Phosphatase 139 H Ammonia 150.0 H Total Protein 8.2 Albumin 4.1 Globulin 4.1 Albumin/Globulin Ratio 1.0 Lipase 68 L Assessment/Plan All Active Problems (Last Reviewed 10/07/18 @ 11:22 by Diana Duke) Intractable nausea and vomiting (Acute) Hyperammonemia (Acute) Acute kidney injury (Resolved) Anemia (Resolved) Hypokalemia (Resolved) Impression 1. hyperammonemia with an ammonia of 150 but, she is alert and oriented and seemingly unaffected by the elevated ammonia 2. N/V with a hx of gastroparesis and Celiac's disease 3. mild dehydration 4. DM I 5. HTN 6. HLD 7. CAD with hx of PTCA LAD and circ in 2014 and at that time the EF was 65% 8. diastolic dysfunction 9. morbid obesity Admit to MS 1 liter of IV NS Continue home meds Clear Liquid diet Pt will not take Lactulose. I will try Miralax.....I have seen this used in the past with some success. I have started Rifaxamin. She is not really symptomatic and I do not see the need to aggressively treat a number. Will recheck the ammonia in the AM Clear Liquid diet Mold Dumper consult Phenergan for nausea SCD's and TEDS for DVT prophylaxis. Hold pharmacologic agent in light of platelets of 79,000. She is ambulatory
[2018-10-07] MEDS: rifAXIMin 550 MG Tablet PO ×2 (15:44→22:31)
[2018-10-07] MEDS: Lactulose 20 GM/30 ML UDC 30 GM PO (15:48)
--- NOTE | 2018-10-07 16:03 | NURSING ---
admission rn states pt will get humalog on the floor. not held in department for medication. sasha johnson rn
[2018-10-07 16:04] VITALS: BP 142/68; PULSE 72; RESP 16; O2SAT 98
[2018-10-07] MEDS: Insulin Lispro 100 UNIT/ML INSULN.PEN 12 UNIT SC (16:12)
[2018-10-07 16:20] VITALS: BP 128/58; PULSE 66; RESP 16; TEMP 36.6; O2SAT 96
[2018-10-07 16:20] LABS: Bedside Glucose 393 mg/dL (70-110)
[2018-10-07] MEDS: 0.9% Normal Saline 1,000 ML 150 ML IV (16:27)
[2018-10-07] MEDS: 0.9% NaCl Peripheral Flush Adult/Peds IV (16:27)
[2018-10-07] MEDS: Polyethylene Glycol 3350 17 GM PACKET PO ×2 (16:54→22:31)
[2018-10-07] MEDS: Insulin Lispro 100 UNIT/ML INSULN.PEN SC ×3 (16:56→22:29)
[2018-10-07 17:01] LABS: International Normalized Ratio 1.2; Magnesium 2.3 mg/dL (1.6-2.6); Prothrombin Time (Protime)PT. 15.3 SECONDS (11.7-14.9)
[2018-10-07 17:02] LABS: Partial Thromboplast Time 34.1 Seconds (24.1-36.2)
--- NOTE | 2018-10-07 17:28 | NURSING ---
DR ALEXANDRA MADE AWARE OF PT COAGS & ALSO PT C/O BACK/KNEE PAIN - NEW ORDERS RECEIVED.
[2018-10-07] MEDS: Furosemide 20 MG Tablet PO (17:35)
[2018-10-07 17:37] LABS: Phosphorus 2.7 mg/dL (2.5-4.9)
[2018-10-07 22:00] VITALS: BP 126/65; PULSE 63; RESP 16; TEMP 36.6; O2SAT 98
[2018-10-07] MEDS: Losartan Potassium 25 MG Tablet PO (22:28)
[2018-10-07] MEDS: busPIRone 5 MG Tablet 10 MG PO (22:28)
[2018-10-07] MEDS: Montelukast 10 MG Tablet PO (22:31)
[2018-10-07] MEDS: ALPRAZolam 0.5 MG Tablet 1 MG PO (22:31)
[2018-10-07] MEDS: Atorvastatin Calcium 20 MG Tablet PO (22:31)
[2018-10-07 22:42] VITALS: BMI 41.9
[2018-10-07 22:51] LABS: Bedside Glucose 281 mg/dL (70-110)
--- NOTE | 2018-10-08 03:51 | NURSING ---
Pt checked blood sugar with home machine and resulted at 176. will continue to monitor.
[2018-10-08 03:52] VITALS: BP 120/64; PULSE 60; RESP 16; TEMP 36.6; O2SAT 98
[2018-10-08 05:26] LABS: Hematocrit 36.8 % (37-47); Hemoglobin 12.5 g/dl (12.0-15.0); Mean Corpuscular Volume 91.3 fL (81-99); Mean Platelet Vol. 9.9 fl (6.2-12.0); Platelet Count 75 K/mm3 (150-450); RBC Distribution Width CV 13.3 % (11.6-14.6); Red Blood Count 4.03 M/mm3 (4.2-5.4); White Blood Count 4.9 K/mm3 (4.4-11.0)
[2018-10-08 05:27] LABS: Scan Indicated on CBC? Y/N NO
[2018-10-08] MEDS: oxyCODONE 5 MG Tablet PO (05:27)
[2018-10-08] MEDS: Polyethylene Glycol 3350 17 GM PACKET PO (05:28)
[2018-10-08] MEDS: 0.9% NaCl Peripheral Flush Adult/Peds IV (05:28)
[2018-10-08] MEDS: Levothyroxine 150 MCG Tablet PO (05:28)
[2018-10-08] MEDS: proMETHazine 25 MG/ML Syringe 12.5 MG IV (05:28)
[2018-10-08 05:44] LABS: Anion Gap 8 (5-15); BUN 20 mg/dL (7-18); BUN/Creat Ratio 20.1 RATIO (10-20); Calcium,Total 8.8 mg/dL (8.5-10.1); Chloride 109 mmol/L (98-107); EST Glomerular Filtration Rate 62 mL/min (>60); Est Glom Filt Rate - Afr Amer 75 mL/min (>60); Estimated Creatinine Clearance 62.31 ml/min; Glucose 200 mg/dL (74-106); Magnesium 2.1 mg/dL (1.6-2.6); Phosphorus 3.3 mg/dL (2.5-4.9); Sodium Level 144 mmol/L (136-145)
[2018-10-08 08:33] VITALS: BP 117/61; PULSE 62; RESP 18; TEMP 36.7; O2SAT 98
[2018-10-08] MEDS: Insulin Lispro 100 UNIT/ML INSULN.PEN SC ×2 (08:40→08:41)
[2018-10-08] MEDS: Oxymetazoline 0.05% 1 SPRAY SPRAY.BTL NASAL (08:41)
[2018-10-08] MEDS: Spironolactone 25 MG Tablet PO (08:41)
[2018-10-08] MEDS: busPIRone 5 MG Tablet 10 MG PO (08:42)
[2018-10-08] MEDS: rifAXIMin 550 MG Tablet PO (08:43)
[2018-10-08] MEDS: Pantoprazole Sodium 40 MG Tablet PO (08:43)
[2018-10-08] MEDS: Furosemide 20 MG Tablet PO (08:43)
[2018-10-08] MEDS: Clopidogrel Bisulfate 75 MG Tablet PO (08:43)
--- NOTE | 2018-10-08 08:48 | DCINST_ITS ---
- Discharge Diagnoses Current Active Problems: Current Active and Chronic Problems (Last Reviewed 10/07/18 @ 15:45 by Aggie Negrete DO) Celiac disease (Chronic) Morbid obesity with BMI of 40.0-44.9, adult (Chronic) You will use the following diet at home:: Calorie/Carbohydrate Controlled (specify 1200, 1400, etc) - 1800 shannan., Cardiac Your food should be the consistency of: Regular Discharge Activity: Return to Normal Activity Weight Bearing Status: Weight bearing as tolerated Call your doctor if you observe: Fever of 101 or Higher, Shortness of breath, Dizziness, Fainting spells, Chest pain, Increased palpitations (irregular heartbeat), Uncontrolled pain Allergies/Adverse Reactions: Allergies acetaminophen Allergy (Unknown, Verified 10/07/18 12:45) Unknown erythromycin base Allergy (Unknown, Verified 10/07/18 12:45) Unknown gluten Allergy (Unknown, Verified 10/07/18 12:45) Unknown adhesive Allergy (Verified 10/07/18 12:45) BLISTERS ADHESIVE ON BAND-AIDS linaclotide [From Linzess] Allergy (Verified 10/07/18 12:45) Nausea/Vom/Diarrhea sumatriptan [From Imitrex] Adverse Reaction (Intermediate, Verified 10/07/18 12:45) PALPITATIONS sumatriptan succinate [From Imitrex] Adverse Reaction (Intermediate, Verified 10/07/18 12:45) PALPITATIONS prednisone Adverse Reaction (Mild, Verified 10/07/18 12:45) Vomiting amoxicillin trihydrate [From Augmentin] Adverse Reaction (Verified 10/07/18 12:45) Nausea barium iodide Adverse Reaction (Verified 10/07/18 12:45) Nausea/Vom/Diarrhea citalopram Adverse Reaction (Verified 10/07/18 12:45) Unknown glyburide [From Glucovance] Adverse Reaction (Verified 10/07/18 12:45) Unknown ibuprofen Adverse Reaction (Verified 10/07/18 12:45) Unknown metformin [From Glucovance] Adverse Reaction (Verified 10/07/18 12:45) Unknown metoclopramide [From Reglan] Adverse Reaction (Verified 10/07/18 12:45) constant motion of legs and arms it didn't work morphine Adverse Reaction (Verified 10/07/18 12:45) Unknown naproxen Adverse Reaction (Verified 10/07/18 12:45) Unknown oxaprozin [From Daypro] Adverse Reaction (Verified 10/07/18 12:45) Unknown potassium clavulanate [From Augmentin] Adverse Reaction (Verified 10/07/18 12: 45) Nausea prednisolone Adverse Reaction (Verified 10/07/18 12:45) Unknown pregabalin [From Lyrica] Adverse Reaction (Verified 10/07/18 12:45) Other TOTAL LOSS OF NERVES prochlorperazine [From Compazine] Adverse Reaction (Verified 10/07/18 12:45) Other tramadol Adverse Reaction (Verified 10/07/18 12:45) Other RESTLESS venlafaxine [From Effexor] Adverse Reaction (Verified 10/07/18 12:45) Unknown Medications to take at Discharge Levothyroxine [Synthroid] 150 mcg PO DAILY 07/02/15 Pantoprazole Sodium [Protonix] 40 mg PO DAILY 07/02/15 proMETHazine tablet [Phenergan tablet] 25 mg PO Q4H PRN PRN 07/02/15 Clopidogrel Bisulfate [Plavix] 75 mg PO DAILY 07/10/15 Losartan Potassium [Cozaar] 25 mg PO QHS 07/10/15 Rosuvastatin Calcium [Crestor] 10 mg PO QHS 12/01/15 Spironolactone [Aldactone] 25 mg PO DAILY 04/19/17 Ergocalciferol [Vitamin D] 50,000 unit PO WESA 08/05/18 Oxymetazoline 0.05% [Afrin (BKC)] 1 spray NASAL DAILY 08/05/18 ALPRAZolam [Xanax] 1 mg PO QHS 10/07/18 Buspirone HCl [Buspar] 10 mg PO BID 10/07/18 Furosemide [Lasix] 20 mg PO BID 10/07/18 Insulin Glargine,Hum.rec.anlog [Toujeo Solostar] 120 units SQ QHS 10/07/18 Montelukast [Singulair] 10 mg PO QHS 10/07/18 insulin lispro (U- 100) 100 unit/mL subcutaneous pen See Rx Instructions SC TID #132 ml 10/07/18 Rifaximin [Xifaxan] 550 mg PO BID #60 tablet 10/08/18 The following prescriptions were given: Rifaximin [Xifaxan] 550 mg PO BID #60 tablet Primary Care Physician: Kaylee Franco MD [Primary Care Provider] - Please follow up with your Primary Care Physician in: 2 weeks. Test Results: Test results from this visit will be discussed in further detail at your follow- up appointment, if applicable.
[2018-10-08 08:56] LABS: Bedside Glucose 179 mg/dL (70-110)
--- NOTE | 2018-10-08 10:45 | CASEMGMT ---
SARA BUSH ASSESSMENT D/C PLAN: Home with family support and discharge plans in place. Face to Face with patient for initial transition planning/care coordination assessment. SARA BUSH introduced self and role at [facility]. Pt voices understanding and consents to assessment at this time. Pt sitting up on chair, in no distress at this time. Pt is A/O at this time and answers all questions appropriately. Care providers, pharmacy, and demographics verified/updated at this time. PCP: oJan Specialists: MIRANDA Simpson, Dr David/GI specialist, Reid Araya Pharmacy: [facility] Insurance: MCR used to have SONY became ineligible for it. has an appt to see if qualifies for it again. Prescription Benefit: [facility] Living Will/HPOA: has both LW and HCPOA, who is her , Foster. LNOK: Living Arrangements: Lives with her . is mostly independent @ home. 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 No concerns with stairs. Transportation: Pt states drives self and states no transportation concerns at this time. DME/HHC: has the following DME: Shower chair, hand held shower, CPAP. States she and her are looking into getting the shower remodeled to be more handicap accessible. Pt states no need for further DME at this time. Has used HHC in the past, many years ago and does not remember the name of the agency. Declines need for HHC at this time. Pt wishes to return home and has no concerns with going home at time of discharge. Pt does not smoke or drink ETOH. Pt voices no further concerns/needs at this time. Advised pt to ask for CM if any further questions/concerns/needs arise. Voices understanding. Rosas AUGUST RN, CM
--- NOTE | 2018-10-08 11:20 | NURSING ---
PT CHECKED BLOOD SUGAR WITH OWN GLUCOMETER = 139 - STATES SHE WILL NOT TAKE ANY INSULIN UNTIL SHE GETS HOME
--- NOTE | 2018-10-08 11:47 | DS.PCM_ITS ---
Discharge Date and Diagnosis Date of Admission: 10/07/18 Date of Discharge: 10/08/18 - Primary Discharge Diagnosis #1 hyperammonemia, probably due to Diflucan side effects in context of liver cirrhosis. #2 intractable nausea and vomiting. #3 mild dehydration. - Secondary Discharge Diagnosis Chronic Problems (Last Reviewed 10/07/18 @ 15:45 by Aggie Negrete DO) Asthma (Chronic) Gastroparesis (Chronic) Hypertension (Chronic) Coronary artery disease (Chronic) Thrombocytopenia (Chronic) HLD (hyperlipidemia) (Chronic) MANI (obstructive sleep apnea) (Chronic) Hypothyroidism (Chronic) IBS (irritable bowel syndrome) (Chronic) NOYOLA (nonalcoholic steatohepatitis) (Chronic) Diabetes type 1, uncontrolled (Chronic) Celiac disease (Chronic) Morbid obesity with BMI of 40.0-44.9, adult (Chronic) Hospital Course and Treatment Operations: None Procedures: None Summary of Care Provided: Patient seen and examined on the day of discharge and appeared to be stable to be discharged home. She has no more nausea or vomiting, headache improved. Denied abdominal pain, constipation or diarrhea. She recovered quickly and her ammonia level down to 63. It was 150 upon admission. Her vital signs are stable. The patient is a 53 year old F presented to the emergency room because of nausea, vomiting and headache and she was found to have ammonia level of 150. She had a history of liver cirrhosis secondary to N[place]ola. Patient was started on Diflucan 3 days before admission for yeast infection. Her symptoms are probably due to side effects of Diflucan given her history of liver cirrhosis due to Noyola. There was no evidence of hepatic encephalopathy although her ammonia level was highly elevated. Patient has not been taking lactulose at home becau se of nausea but she has been using Senokot and she mentioned that she has been having at least 2 bowel movement every day. Upon admission, patient was dehydrated and her ammonia level was 150. She received IV fluids, IV antiemetics, started on rifaximin and treated with MiraLAX. She had a bowel movement. She remained alert and oriented throughout admission. With above- mentioned treatment, her symptoms improved, had no more nausea vomiting and headache improved. She had a quick unexpected recovery and her ammonia level came down to 63, it was 151 admission. Her BUN was 27 and creatinine was 1.40 on admission and with IV fluid therapy, BUN came down to 20 and creatinine came down to 1 mg/dL. No evidence of infection her LFT was normal as well as lipase. Patient discharged home in a stable medical condition, started on rifaximin upon discharge, recommended to use Symbicort and have at least 2 bowel movement daily, continued on her chronic home medications without any changes, re commended follow-up PCP in 1 week and follow-up with her GI at [facility] in 2-3 weeks. - Physical Exam General: Alert, Oriented x3, Cooperative, No apparent distress HEENT: Atraumatic, PERRLA, EOMI, Normocephalic Oral: Moist Mucosa, No Gingival or Mucosal Lesions/ Ulcerations Neck: Supple, No JVD, Negative Carotid Bruits, Trachea Midline, Thyroid Normal Size and Texture Lungs: Clear to auscultation, Normal air movement, No rhonchi, No wheeze, No rales Cardiovascular: Regular rate, Regular Rhythm, Normal S1, Normal S2, PMI Normal Abdomen: Bowel Sounds Present, Soft, Non Tender, Non-Distended, No Hepato- splenomegaly Extremities: No clubbing, No cyanosis, No edema Skin: No rashes, No breakdown Lymphatic: No Cervical, Supraclavicular, or Inguinal Adenopathy Neurological: Cranial nerves II-XII grossly intact, Motor Exam 5/5 strength throughout Psych/Mental Status: Normal Affect, Appropriate, Alert and oriented to time, place, person, mood and affect Vital Signs Temp Pulse Resp BP Pulse Ox 98.0 F 62 18 117/61 98 10/08/18 08:33 10/08/18 08:33 10/08/18 08:33 10/08/18 08:33 10/08/18 08:33 Oxygen Delivery Method Room Air Weight: 259 lb 11.272 oz Body Mass Index (BMI) 41.9 Finger Stick Blood Glucose 306 Intake and Output for Last 24 Hours 10/06/18 10/07/18 10/08/18 23:59 23:59 23:59 Intake Total 1762 / 1762 724 / 724 Output Total 1400 / 1400 Balance 362 / 362 724 / 724 Laboratory Tests Past 24 Hrs 10/07/18 10/07/18 10/07/18 13:05 13:05 13:05 WBC 4.9 RBC 4.24 Hgb 13.1 Hct 38.3 MCV 90.3 MCH 30.9 MCHC 34.2 RDW 13.4 RDW Differential 43.9 Plt Count 79 L MPV 10.0 Immature Gran % (Auto) 0.000 Neut % (Auto) 60.1 Lymph % (Auto) 26.9 [place] % (Auto) 7.5 Eos % (Auto) 4.9 Baso % (Auto) 0.6 Absolute Neuts (auto) 3.0 Absolute Lymphs (auto) 1.32 Total Counted Not Reportable PT INR APTT Sodium 138 Potassium 4.5 Chloride 104 Carbon Dioxide 27.0 Anion Gap 7 BUN 27 H Creatinine 1.40 H Estim Creat Clear Calc 44.50 Est GFR (MDRD) Af Amer 51 L Est GFR (MDRD) Non-Af 42 L BUN/Creatinine Ratio 19.3 Glucose 380 H Calcium 9.3 Phosphorus Magnesium Total Bilirubin 0.70 AST 30 ALT 37 Alkaline Phosphatase 139 H Ammonia 150.0 H Total Protein 8.2 Albumin 4.1 Globulin 4.1 Albumin/Globulin Ratio 1.0 Lipase 68 L 10/07/18 10/07/18 10/07/18 16:24 16:24 16:24 WBC RBC Hgb Hct MCV MCH MCHC RDW RDW Differential Plt Count MPV Immature Gran % (Auto) Neut % (Auto) Lymph % (Auto) [place] % (Auto) Eos % (Auto) Baso % (Auto) Absolute Neuts (auto) Absolute Lymphs (auto) Total Counted PT 15.3 H INR 1.2 APTT 34.1 Sodium Potassium Chloride Carbon Dioxide Anion Gap BUN Creatinine Estim Creat Clear Calc Est GFR (MDRD) Af Amer Est GFR (MDRD) Non-Af BUN/Creatinine Ratio Glucose Calcium Phosphorus 2.7 Magnesium 2.3 Total Bilirubin AST ALT Alkaline Phosphatase Ammonia Total Protein Albumin Globulin Albumin/Globulin Ratio Lipase 10/08/18 10/08/18 10/08/18 05:15 05:15 05:15 WBC 4.9 RBC 4.03 L Hgb 12.5 Hct 36.8 L MCV 91.3 MCH 31.0 MCHC 34.0 RDW 13.3 RDW Differential 44.0 H Plt Count 75 L MPV 9.9 Immature Gran % (Auto) Neut % (Auto) Lymph % (Auto) [place] % (Auto) Eos % (Auto) Baso % (Auto) Absolute Neuts (auto) Absolute Lymphs (auto) Total Counted PT INR APTT Sodium 144 Potassium 4.0 Chloride 109 H Carbon Dioxide 27.0 Anion Gap 8 BUN 20 H Creatinine 1.00 Estim Creat Clear Calc 62.31 Est GFR (MDRD) Af Amer 75 Est GFR (MDRD) Non-Af 62 BUN/Creatinine Ratio 20.1 H Glucose 200 H Calcium 8.8 Phosphorus 3.3 Magnesium 2.1 Total Bilirubin AST ALT Alkaline Phosphatase Ammonia 63.0 H Total Protein Albumin Globulin Albumin/Globulin Ratio Lipase POC Glucose 10/08/18 10/07/18 10/07/18 08:32 22:26 16:12 POC Glucose 179 H 281 H 393 H Discharge Activity: Return to Normal Activity Weight Bearing Status: Weight bearing as tolerated Call your doctor if you observe: Fever of 101 or Higher, Shortness of breath, Dizziness, Fainting spells, Chest pain, Increased palpitations (irregular heartbeat), Uncontrolled pain Home Medications: Medications to take at Discharge Levothyroxine [Synthroid] 150 mcg PO DAILY 07/02/15 Pantoprazole Sodium [Protonix] 40 mg PO DAILY 07/02/15 proMETHazine tablet [Phenergan tablet] 25 mg PO Q4H PRN PRN 07/02/15 Clopidogrel Bisulfate [Plavix] 75 mg PO DAILY 07/10/15 Losartan Potassium [Cozaar] 25 mg PO QHS 07/10/15 Rosuvastatin Calcium [Crestor] 10 mg PO QHS 12/01/15 Spironolactone [Aldactone] 25 mg PO DAILY 04/19/17 Ergocalciferol [Vitamin D] 50,000 unit PO WESA 08/05/18 Oxymetazoline 0.05% [Afrin (BKC)] 1 spray NASAL DAILY 08/05/18 ALPRAZolam [Xanax] 1 mg PO QHS 10/07/18 Buspirone HCl [Buspar] 10 mg PO BID 10/07/18 Furosemide [Lasix] 20 mg PO BID 10/07/18 Insulin Glargine,Hum.rec.anlog [Toujeo Solostar] 120 units SQ QHS 10/07/18 Montelukast [Singulair] 10 mg PO QHS 10/07/18 insulin lispro (U- 100) 100 unit/mL subcutaneous pen See Rx Instructions SC TID #132 ml 10/07/18 Rifaximin [Xifaxan] 550 mg PO BID #60 tablet 10/08/18 Following Prescrptions Were Given to Patient: Rifaximin [Xifaxan] 550 mg PO BID #60 tablet Primary Care Physician: Kaylee Franco MD [Primary Care Provider] - Please follow up with your Primary Care Physician in: 2 weeks. Disposition: Home Minutes spent on discharge:: 26 Patient Condition:: Stable Medical Necessity - Tobacco Use Smoking Status: Never smoker Tobacco Use: Non-smoker Meaningful Use Info Meaningful Use Diagnoses (Choose all that apply): None applicable Code Visit Inpatient E&M: 28147 Disch Hosp
[2018-10-08 13:10] VITALS: BP 120/67; PULSE 18; PULSE 61; RESP 18; TEMP 36.4; O2SAT 18; O2SAT 98
--- NOTE | 2018-10-08 13:10 | CASEMGMT ---
Addendum entered by Lara Hillman 10/08/18 13:15: Call placed to [facility] and they were notified prior-auth was initiated for the Xifaxan but that Dr Meneses is discontinuing this medication. Original Note: SARA BUSH NOTE: Informed that Xifaxan requires prior-auth. [id number] cost is $2,635 for 60 tablets (30 days). Call placed to [facility] @ and spoke with prior auth dept. Prior auth initiated. Dr Meneses notified of cost and prior-auth required. Dr Meneses states he will discontinue this medication and stated to have pt follow up with her GI specialist in [place]. Pt and made aware of all of the above and pt instructed to follow up with her GI specialist. Pt and voiced understanding. Rosas AUGUST RN, CM
--- NOTE | 2018-10-09 14:35 | CASEMGMT ---
SARA BUSH Discharge Follow-Up Phone Call. LACE: 3 Strata: 10 Discharge Date: 10-08-18 Adm Dx: Hyperammonemia, gastroparesis with nausea. Attempted to reach pt without success. No answer. VM message left for pt to return call to CM office if she has any questions or concerns about discharge instructions, medications, or any other concerns/needs. CM office phone number provided. Rosas AUGUST RN CM
== END 2018-10-08 13:10 | disposition home or self-care (01) | DRG 642 ==
LOC: ED 15:14 → MS2 15:29
PROVIDERS: Admitting Provider Internal Medicine; Emergency Provider Emergency Medicine; Family Provider Internal Medicine; PCP Internal Medicine; Visit Provider Hospitalist
DX: E72.20 Disorder of urea cycle metabolism, unspecified (principal); Z68.41 Body mass index [BMI] 40.0-44.9, adult; K74.60 Unspecified cirrhosis of liver; R11.2 Nausea with vomiting, unspecified; E86.0 Dehydration; T37.8X5A Adverse effect of other specified systemic anti-infectives and antiparasitics, initial encounter; J45.909 Unspecified asthma, uncomplicated; K90.0 Celiac disease; E66.01 Morbid (severe) obesity due to excess calories; E78.5 Hyperlipidemia, unspecified; I10 Essential (primary) hypertension; G47.33 Obstructive sleep apnea (adult) (pediatric); I25.10 Atherosclerotic heart disease of native coronary artery without angina pectoris; K75.81 Nonalcoholic steatohepatitis (NASH); E10.43 Type 1 diabetes mellitus with diabetic autonomic (poly)neuropathy; K31.84 Gastroparesis; Z79.4 Long term (current) use of insulin; Z79.899 Other long term (current) drug therapy; D69.6 Thrombocytopenia, unspecified; E03.9 Hypothyroidism, unspecified; K58.9 Irritable bowel syndrome, unspecified; E10.65 Type 1 diabetes mellitus with hyperglycemia
CPT/HCPCS: 36415; 80048; 80053; 82140; 82962; 83690; 83735; 84100; 85025; 85027; 85610; 85730; 99282; J7030; A4216

== ENCOUNTER 2020-01-12 14:12 | Emergency (ER) | payer MEDICARE, MEDICAID, SELFPAY ==
[2020-01-12 14:14] VITALS: BP 124/62; PULSE 64; PULSE 66; RESP 17; RESP 18; TEMP 36.7; O2SAT 100; BMI 40.5
[2020-01-12 14:27] VITALS: BP 124/62; PULSE 66; RESP 18; TEMP 36.7; O2SAT 100
[2020-01-12 14:37] VITALS: O2SAT 99
--- NOTE | 2020-01-12 15:10 | EKG12_ITS ---
Test Reason : SOB Blood Pressure : / mmHG Vent. Rate : 062 BPM Atrial Rate : 062 BPM P-R Int : 198 ms QRS Dur : 120 ms QT Int : 478 ms P-R-T Axes : 012 -29 071 degrees QTc Int : 485 ms Normal sinus rhythm Incomplete left bundle branch block Borderline ECG Confirmed by DICK LANGE, CAROLYN ([id number]), web content editor DAMASO KING ([id number]) on 01/17/2020 11:24:14 AM Referred By: MAR Confirmed By:RHODA JENNINGS MD
--- NOTE | 2020-01-12 15:11 | ED.VISSUMM ---
- ER Visit Summary Date of Service: 01/12/20 Chief Complaint: Cough and shortness of breath with muscle aches History of Present Illness: The patient is a 54 F history of anemia, asthma, diabetes, nonalcoholic cirrhosis. History of CAD with 2 cardiac stents. Patient states for last several weeks she has had a nonproductive cough. Fever as high as 102 with shortness of breath. Denies chest pain. Other than burning when she coughs. No history of DVT or PE. No leg pain or swelling. No hemoptysis. No recent travel, surgery or immobilization. Physical Examination: White female no acute distress vital signs stable afebrile pulse ox 100% on room air no signs of hypoxia. HEENT exam unremarkable. Moist his membranes. Neck nontender no JVD. No lymphadenopathy. Lungs clear to auscultation bilaterally. Equal symmetrical. Heart regular rate and rhythm no murmur rate about 65. Abdomen soft nontender normal bowel sounds no peritoneal signs. Extremities moves all 4. Neurovascular intact. Calves nontender no edema or cords. 5-5 program evaluation consultant strength. Dorsi plantarflexion. Back nontender. Skin unremarkable. Neurologically she is awake alert with no focal motor deficits. Test Results: EKG sinus rhythm rate of 62 no acute signs of OH or ischemia. Chest x-ray 2 views AP lateral read by myself shows no acute abnormality. Left prosthetic shoulder. CBC white count of 4. Hemoglobin at 10.4 prior hemoglobin 12. Chemistries unremarkable glucose of 236 normal creatinine and gap. Repeat exam the patient is doing well at 1614 p.m. Will be discharged home. Emergency Department Course and Treatment: Patient with cough, fever and shortness of breath. Consider pneumonia, viral syndrome, COVID 19, cardiac disease, anemia versus other etiologies. Screening labs along with a chest x-ray and EKG will be obtained. Patient is in no distress. Treatment Plan: Fluids and rest. Follow-up with your doctor not improving. Disposition: dc Impression: Acute dyspnea secondary to viral URI This note was generated with [employer] dictation software. It may contain incorrect words, spelling, and punctuation that were not noted in review of the chart prior to signing ED Disposition - Plan for ED Patient: Referrals: Kaylee Franco MD [Primary Care Provider] -
[2020-01-12 15:37] LABS: Absolute Lymphocyte Count 1.27 X10^3/uL (0.83-4.51); Absolute Neutrophil Count 2.5 X10^3/uL (2.0-7.7); Basophil# 0.05 X10^3/uL; Basophil% 1.2 % (0-1); Eosinophil# 0.21 X10^3/uL; Eosinophils% 4.9 % (0-5); Hematocrit 32.3 % (37-47); Hemoglobin 10.4 g/dL (12.0-15.0); Lymphocyte # 1.27 X10^3/ul (4.0); Lymphocyte % 29.5 % (19-41); Mean Corp Hgb Conc 32.2 g/dL (32-36); Mean Corpuscular Hgb 27.7 pg (27.0-32.0); Mean Corpuscular Volume 86.1 fL (81-99); Mean Platelet Vol. 10.3 fl (6.2-12.0); Monocyte# 0.27 X10^3/uL; Monocyte% 6.3 % (0-10); NRBC Flagged by Analyzer 0 % (0-5); Neutrophil # 2.48 X10^3/uL (2.7-7.7); Neutrophil % 57.6 % (47-70); POSITIVE COUNT YES; Platelet Count 68 K/mm3 (150-450); RBC Distribution Width CV 15.3 % (11.6-14.6); RBC Distribution Width SD 46.3 fl (35.1-43.9); Red Blood Count 3.75 M/mm3 (4.2-5.4); White Blood Count 4.3 K/mm3 (4.4-11.0)
--- NOTE | 2020-01-12 15:42 | RAD_ITS ---
STUDY: X-RAY CHEST REASON FOR EXAM: Female, 54 years old. SOB, FEVER TECHNIQUE: PA and lateral views of the chest. COMPARISON: Chest x-ray 08/05/2018. FINDINGS: The lungs are clear and expanded. There is mild platelike atelectasis at the right lung base. No focal pulmonary consolidation. There is no demonstrated pleural abnormality. There is moderate cardiac silhouette enlargement. Normal mediastinum and junaid. Normal visualized pulmonary arteries. Normal visualized aortic arch and descending thoracic aorta. Normal visualized thoracic spine. There is a left shoulder prosthesis There is no demonstrated abnormality of the visualized soft tissue structures of the upper abdomen. RAD/Chest PA and Lateral IMPRESSION: No focal pulmonary consolidation. Mild platelike atelectasis at the right lung base. Electronically Signed: Josue Miranda, at 16:30 EDT Tel , Service support ,
[2020-01-12 15:48] LABS: Anion Gap 7 (5-15); BUN 22 mg/dL (7-18); Calcium,Total 8.9 mg/dL (8.5-10.1); Chloride 107 mmol/L (98-107); EST Glomerular Filtration Rate 55 mL/min (>60); Est Glom Filt Rate - Afr Amer 67 mL/min (>60); Estimated Creatinine Clearance 56.01 ml/min; Glucose 236 mg/dL (74-106); Potassium 3.8 mmol/L (3.5-5.1); Sodium Level 141 mmol/L (136-145)
[2020-01-12 15:52] LABS: Differential Indicated SCAN CRITERIA MET
--- NOTE | 2020-01-12 16:16 | ED.DEP ---
ED Disposition - Plan for ED Patient: Disposition: Home or Assisted Living Instructions: BRONCHITIS, No Antibiotic (Adult) Referrals: Kaylee Franco MD [Primary Care Provider] - 1 Week if not improving Additional Instructions: Plenty of fluids and rest. Alternate Tylenol and/or Motrin for fever. Follow-up with your doctor if not improving
[2020-01-12 16:21] VITALS: BP 110/86; PULSE 62; RESP 18; TEMP 36.6; O2SAT 100; O2SAT 99
[2020-01-12 16:27] LABS: Differential Comment SCANNED; Platelet Estimate MOD DEC (ADEQ)
== END 2020-01-12 16:31 | disposition home or self-care (01) ==
PROVIDERS: Emergency Provider Emergency Medicine; PCP Internal Medicine
DX: J06.9 Acute upper respiratory infection, unspecified (principal); J45.909 Unspecified asthma, uncomplicated; E11.9 Type 2 diabetes mellitus without complications; K74.60 Unspecified cirrhosis of liver; I25.10 Atherosclerotic heart disease of native coronary artery without angina pectoris; Z86.2 Personal history of diseases of the blood and blood-forming organs and certain disorders involving the immune mechanism; Z95.5 Presence of coronary angioplasty implant and graft; Z79.4 Long term (current) use of insulin; Z79.02 Long term (current) use of antithrombotics/antiplatelets; Z79.899 Other long term (current) drug therapy
CPT/HCPCS: 71046; 80048; 85025; 93005; 99284; A4216